=== PATIENT | male | born 1950 | race Caucasian/White ===

== ENCOUNTER 2021-12-20 12:13 | Inpatient (IN) | payer OTHER, MEDICARE ==
[~2021-12-20] VITALS: Ht 175.3 cm; Wt 73.7 kg
[~2021-12-20 12:13] MED LIST: CHOL400T32 PO; HYDR-4383 PO; HYDR25TA4 PO; MYCOL15CR TOP; PANT-47 PO; RIVA20TA PO
[2021-12-20 13:04] LABS: ALANINE AMINOTRANSFERASE 45 U/L (12-78); ALBUMIN 3.3 G/DL (3.4-5.0); ALBUMIN/GLOBULIN RATIO 0.6 (1.1-1.5); ALKALINE PHOSPHATASE 136 IU/L (46-116); ANION GAP 15 (8-16); ASPARTATE AMINO TRANSFERASE 49 U/L (10-37); BILIRUBIN,TOTAL 1.1 MG/DL (0.1-1.0); BLOOD UREA NITROGEN 77 MG/DL (7-18); BUN/CREATININE RATIO 23.1 (5.4-32.0); CALCIUM 9.4 MG/DL (8.5-10.1); CHLORIDE 88 MMOL/L (99-107); CREATININE 3.34 MG/DL (0.60-1.10); GLUCOSE 168 MG/DL (70-104); LIPASE 127 U/L (73-393); POTASSIUM 3.6 MMOL/L (3.5-5.1); SODIUM 135 MMOL/L (135-145); TOTAL CARBON DIOXIDE 32.5 MMOL/L (24-32); TOTAL PROTEIN 8.5 G/DL (6.4-8.2); eGFR 18 ML/MIN
[2021-12-20 13:10] LABS: BASOPHILS % (AUTO) 0.1 % (0-1); EOSINOPHILS % (AUTO) 0.1 % (0-6); HEMOGLOBIN 14.6 g/dl (14.0-17.9); LYMPHOCYTES # (AUTO) 0.7 X10'3 (1.1-4.8); LYMPHOCYTES % (AUTO) 5.4 % (21-51); MEAN CORPUSCULAR HEMOGLOBIN 29.5 PG (27.0-31.0); MEAN CORPUSCULAR HGB CONC 33.8 g/dL (33.0-36.5); MEAN CORPUSCULAR VOLUME 87.2 FL (78-98); MEAN PLATELET VOLUME 8.6 FL (7.4-10.4); MONOCYTES # (AUTO) 0.9 X10'3 (0-0.9); MONOCYTES % (AUTO) 6.4 % (2-12); NEUTROPHILS # (AUTO) 11.9 X10'3 (1.8-7.7); PLATELET COUNT 547 X10'3 (140-440); RED BLOOD COUNT 4.94 X10'6 (4.70-6.10); RED CELL DISTRIBUTION WIDTH 14.8 % (11.5-14.5); WHITE BLOOD COUNT 13.5 X10'3 (4.5-11.0)
[2021-12-20] MEDS ORDERED: proCHLORperazine 10 MG/2 ml inj IV ONE (14:45)
[2021-12-20] MEDS ORDERED: normal saline 1000ML IV soln IVB ONE (14:45)
[2021-12-20] MEDS ORDERED: piperacillin/tazo 3.375gm/50ml 50 ML IV ONE (15:55)
[2021-12-20] MEDS ORDERED: potassium Cl 20 mEq SR tablet PO PRN ×2 (16:15)
[2021-12-20] MEDS ORDERED: magnesium 2GM in 50ml NS 50 ML IV PRN (16:15)
[2021-12-20] MEDS ORDERED: potassium CL 10mEq/100ml bag 100 ML IV PRN (16:15)
[2021-12-20] MEDS ORDERED: magnesium hydroxide 30ml (MOM) UD suspension PO PRN (16:15)
[2021-12-20] MEDS ORDERED: magnesium 4gm in 100ml NS 100 ML IV PRN (16:15)
[2021-12-20] MEDS ORDERED: magnesium Cl slow-release 64mg tablet PO PRN (16:15)
[2021-12-20] MEDS ORDERED: morphine 2 MG/ML inj. syringe IV PRN (16:15)
[2021-12-20] MEDS ORDERED: mag hydrox/Alum hydrox/simeth 30ml oral suspension PO PRN (16:15)
[2021-12-20] MEDS ORDERED: LIDOcaine 2% 10ml TOPICAL JELLY (Urojet) MM ONE (16:15)
[2021-12-20] MEDS ORDERED: acetaminophen 325mg tablet PO PRN ×2 (16:15)
[2021-12-20] MEDS ORDERED: normal saline 1000ml 1,000 ML IV ONE (16:30)
[2021-12-20 16:37] LABS: MAGNESIUM 2.8 MG/DL (1.5-2.4)
[2021-12-20] MEDS ORDERED: POTA-207 PO (16:43)
[2021-12-20] MEDS ORDERED: MAGN420T PO (16:43)
[2021-12-20] MEDS ORDERED: EZET10TA6 PO (16:43)
[2021-12-20] MEDS ORDERED: CYAN-51 PO (16:43)
[2021-12-20] MEDS ORDERED: CETI10TA15 PO (16:43)
[2021-12-20] MEDS ORDERED: TRIA1TAB3 PO (16:43)
[2021-12-20] MEDS ORDERED: CHOL200013 PO (16:43)
[2021-12-20] MEDS ORDERED: AMLO2.5T5 PO (16:43)
[2021-12-20] MEDS ORDERED: CLOP75TA15 PO (16:43)
[2021-12-20] MEDS ORDERED: FERR-39 PO (16:43)
[2021-12-20] MEDS ORDERED: ATOR-2 PO (16:43)
[2021-12-20 16:56] LABS: HEMOGLOBIN A1C 5.9 % (4.5-6.2)
[2021-12-20 17:05] LABS: CLARITY,URINE SLIGHTLY CLOUDY (Clear); COLOR,URINE YELLOW (Yellow); GLUCOSE, URINE NEGATIVE (Neg); KETONES,URINE TRACE mg/dl (Neg); LEUKOCYTE ESTERASE ,URINE NEGATIVE (Neg); NITRITES, URINE NEGATIVE (Neg); OCCULT BLOOD,URINE SMALL (Neg); PROTEIN,URINE 30 mg/dl (Neg); UROBILINOGEN,URINE 0.2 E.U/dL (0.2-1.0)
[2021-12-20 17:06] LABS: UA COLLECTION TYPE FOLEY CATH
[2021-12-20 17:17] LABS: HYALINE CASTS 0-3 /LPF (NEGATIVE)
[2021-12-20 17:19] LABS: MUCUS STRANDS MODERATE /LPF (Neg); SQUAMOUS EPITHELIAL CELL,UR MODERATE /LPF (FEW)
[2021-12-20 17:20] LABS: BACTERIA,URINE FEW /HPF (Neg); WBC,URINE 0-4 /HPF (0-4)
--- NOTE | 2021-12-20 17:20 | NUR ---
Report given to DEJA Yañez on the Ortho unit.
[2021-12-20] MEDS: morphine 2 MG/ML inj. syringe IV PRN (17:58)
[2021-12-20] MEDS: normal saline 1000ml 1,000 ML IV SCH (18:01)
[2021-12-20 18:48] VITALS: BP 119/73
--- NOTE | 2021-12-20 18:48 | NUR ---
Patient in room ORTHO 4009. I have received report from DAKSHA SHORT and had the opportunity to ask questions and assume patient care.
--- NOTE | 2021-12-20 18:49 | NUR ---
Patient arrived to unit at 1735 from ED.
--- NOTE | 2021-12-20 19:28 | NUR ---
Patient in room ORTHO 4009. I have received report from JONG SHORT and had the opportunity to ask questions and assume patient care.
[2021-12-20] MEDS: docusate sod 100mg capsule PO SCH (20:00)
[2021-12-20] MEDS: K and/or MAG REPLACEMENT MC SCH (20:00)
[2021-12-20] MEDS: heparin, porcine 5000 units/ml vial SQ SCH (20:58)
[2021-12-20 22:00] VITALS: BP 118/72
[2021-12-20] MEDS: diatr meglu/diatrizoate 30ml oral sol.-(3 dose) bottle PO SCH (22:14)
[2021-12-21] MEDS: piperacillin/tazo 3.375gm/50ml 50 ML IV SCH ×3 (00:02→16:15)
[2021-12-21] MEDS: normal saline 1000ml 1,000 ML IV SCH ×4 (00:42→20:42)
[2021-12-21 02:00] VITALS: BP 113/71
[2021-12-21 06:00] VITALS: BP 107/73
--- NOTE | 2021-12-21 06:43 | NUR ---
Problems reprioritized. Patient report given, questions answered & plan of care reviewed with LAURA SHORT.
[2021-12-21 06:52] LABS: BASOPHILS % (AUTO) 0.1 % (0-1); EOSINOPHILS % (AUTO) 0.1 % (0-6); HEMATOCRIT 36.5 % (42.0-52.0); HEMOGLOBIN 12.2 g/dl (14.0-17.9); LYMPHOCYTES # (AUTO) 0.6 X10'3 (1.1-4.8); LYMPHOCYTES % (AUTO) 5.1 % (21-51); MEAN CORPUSCULAR HEMOGLOBIN 29.6 PG (27.0-31.0); MEAN CORPUSCULAR HGB CONC 33.4 g/dL (33.0-36.5); MEAN CORPUSCULAR VOLUME 88.7 FL (78-98); MEAN PLATELET VOLUME 7.9 FL (7.4-10.4); MONOCYTES # (AUTO) 0.7 X10'3 (0-0.9); MONOCYTES % (AUTO) 6.3 % (2-12); NEUTROPHILS # (AUTO) 9.6 X10'3 (1.8-7.7); NEUTROPHILS % (AUTO) 88.4 % (42-75); PLATELET COUNT 418 X10'3 (140-440); RED BLOOD COUNT 4.12 X10'6 (4.70-6.10); RED CELL DISTRIBUTION WIDTH 14.6 % (11.5-14.5); WHITE BLOOD COUNT 10.8 X10'3 (4.5-11.0)
--- NOTE | 2021-12-21 07:03 | NUR ---
Problems reprioritized. Patient report given, questions answered & plan of care reviewed with PRAVEENA SHORT.
[2021-12-21] MEDS: K and/or MAG REPLACEMENT MC SCH ×2 (08:00→20:09)
[2021-12-21] MEDS: docusate sod 100mg capsule PO SCH ×2 (08:00→20:00)
[2021-12-21 08:17] LABS: ALANINE AMINOTRANSFERASE 36 U/L (12-78); ALBUMIN 2.5 G/DL (3.4-5.0); ALBUMIN/GLOBULIN RATIO 0.6 (1.1-1.5); ALKALINE PHOSPHATASE 108 IU/L (46-116); ANION GAP 9 (8-16); ASPARTATE AMINO TRANSFERASE 35 U/L (10-37); BILIRUBIN,TOTAL 0.9 MG/DL (0.1-1.0); BLOOD UREA NITROGEN 70 MG/DL (7-18); CHLORIDE 97 MMOL/L (99-107); CHOL/HDL RATIO 2.6 (0.00-4.99); CHOLESTEROL 92 MG/DL (0-200); CREATININE 3.05 MG/DL (0.60-1.10); GLUCOSE 95 MG/DL (70-104); HDL CHOLESTEROL 35 MG/DL (35-60); LDL CHOLESTEROL 43 MG/DL (50-100); PHOSPHORUS 5.5 MG/DL (2.3-4.5); SODIUM 145 MMOL/L (135-145); TOTAL CARBON DIOXIDE 38.9 MMOL/L (24-32); TOTAL PROTEIN 6.8 G/DL (6.4-8.2); TRIGLYCERIDES 101 MG/DL (20-135); eGFR 20 ML/MIN
[2021-12-21 08:22] LABS: POTASSIUM 2.7 MMOL/L (3.5-5.1)
[2021-12-21] MEDS: diatr meglu/diatrizoate 30ml oral sol.-(3 dose) bottle PO SCH ×2 (09:06→10:16)
[2021-12-21] MEDS: heparin, porcine 5000 units/ml vial SQ SCH ×2 (09:07→20:00)
[2021-12-21] MEDS ORDERED: POTASSIUM BICARB 20meq eff tab 20 MEQ TABLET.EFF PO PRN ×2 (14:00)
[2021-12-21 14:08] VITALS: BP 117/65
--- NOTE | 2021-12-21 18:37 | NUR ---
ROUNDED WITH DR. POTTS, PATIENT GOING TO SURGERY. NG EMPTIED, F/C EMPTIED AND COVID TEST TAKEN.
--- NOTE | 2021-12-21 19:10 | NUR ---
Problems reprioritized. Patient report given, questions answered & plan of care reviewed with FAVIAN SHORT.
[2021-12-21 19:37] LABS: ALANINE AMINOTRANSFERASE 33 U/L (12-78); ALBUMIN 2.7 G/DL (3.4-5.0); ALBUMIN/GLOBULIN RATIO 0.6 (1.1-1.5); ALKALINE PHOSPHATASE 112 IU/L (46-116); ASPARTATE AMINO TRANSFERASE 33 U/L (10-37); BLOOD UREA NITROGEN 68 MG/DL (7-18); BUN/CREATININE RATIO 23.4 (5.4-32.0); CALCIUM 8.2 MG/DL (8.5-10.1); CHLORIDE 97 MMOL/L (99-107); GLUCOSE 92 MG/DL (70-104); SODIUM 150 MMOL/L (135-145); TOTAL PROTEIN 7.4 G/DL (6.4-8.2); eGFR 21 ML/MIN
[2021-12-21 19:53] LABS: ANION GAP 7 (8-16)
[2021-12-21 19:55] LABS: POTASSIUM 2.5 MMOL/L (3.5-5.1)
[2021-12-21] MEDS ORDERED: fentaNYL/PF 50MCG/1 ML 2ML syringe ONE ×3 (21:25→23:59)
[2021-12-21] MEDS ORDERED: rocuronium 10mg/ml inj IV ONE (21:26)
[2021-12-21] MEDS ORDERED: propofol inj 20 ML IV ONE (21:26)
[2021-12-21] MEDS ORDERED: LIDOcaine 2% (20mg/ml) 5ml vial ONE (21:26)
[2021-12-21] MEDS ORDERED: potassium Cl 40MEQ/250ML bag 270 ML IV PRN (21:35)
[2021-12-21] MEDS ORDERED: PHENYLephrine 10mg/ml 5ml injection IV ONE (21:35)
[2021-12-21] MEDS ORDERED: sevoflurane 250ml liquid IH ONE (21:35)
[2021-12-21] MEDS ORDERED: labetalol 5mg/ml 20ml inj. IV ONE (21:35)
[2021-12-21] MEDS: potassium Cl 20mEq/100mL bag 100 ML IV SCH ×2 (22:30→23:30)
[2021-12-21] MEDS ORDERED: BUPIVACAINE liposomal/PF 13.3 MG/ML vial IM ONE (23:25)
[2021-12-21] MEDS ORDERED: BUPIVAcaine 0.5% inj/PF 30 ML ONE (23:25)
[2021-12-21] MEDS ORDERED: sugammadex 200mg/2ml injection IV ONE (23:40)
[2021-12-21] MEDS ORDERED: morphine 4 MG/ML inj SYRINge ONE (23:54)
[2021-12-22] VITALS (28 sets, daily range): BP systolic 107–154; BP diastolic 55–94
[2021-12-22] MEDS: HYDROmorphone inj. 0.5 MG/0.5 ML DISP.SYRIN IV PRN ×3 (00:14→00:47)
[2021-12-22] MEDS ORDERED: fentaNYL/PF 50MCG/1 ML 2ML syringe IV ONE (00:20)
[2021-12-22] MEDS ORDERED: ringers solution, lactated 500ml IV solution IV ONE (00:20)
[2021-12-22] MEDS: potassium Cl 20mEq/100mL bag 100 ML IV SCH ×2 (00:30→01:30)
[2021-12-22] MEDS ORDERED: HYDROmorphone 1 mg/ml syringe IV ONE (00:35)
[2021-12-22] MEDS ORDERED: naloxone 0.4 mg/ml inj IV PRN (00:35)
[2021-12-22 00:36] LABS: ABG BASE EXCESS 11.2 mmol/L (-2.0-2.0); ABG HCO3 36.1 mmol/L (22.0-26.0); ABG OXYGEN SATURATION 94.9 % (94-97); ABG PCO2 (T) 48.3 mmHg (35.0-48.0); ABG PO2 (T) 79.5 mmHg (75.0-100.0); FCOHb 0.1 % (0.0-3.9); FLOW 10 L/min; FMetHb 0.3 % (0.0-1.5); FO2Hb 94.5 % (94-97); TOTAL HEMOGLOBIN 12.9 G/dl (14.0-18.0)
[2021-12-22 00:59] LABS: ALANINE AMINOTRANSFERASE 24 U/L (12-78); ALKALINE PHOSPHATASE 83 IU/L (46-116); ANION GAP 11 (8-16); ASPARTATE AMINO TRANSFERASE 22 U/L (10-37); BILIRUBIN,TOTAL 0.9 MG/DL (0.1-1.0); BLOOD UREA NITROGEN 60 MG/DL (7-18); BUN/CREATININE RATIO 23.3 (5.4-32.0); CALCIUM 7.1 MG/DL (8.5-10.1); CHLORIDE 103 MMOL/L (99-107); CREATININE 2.57 MG/DL (0.60-1.10); GLUCOSE 129 MG/DL (70-104); MAGNESIUM 2.5 MG/DL (1.5-2.4); SODIUM 149 MMOL/L (135-145); TOTAL CARBON DIOXIDE 35.5 MMOL/L (24-32); eGFR 25 ML/MIN
[2021-12-22 01:04] LABS: POTASSIUM 2.9 MMOL/L (3.5-5.1)
[2021-12-22 01:16] LABS: APTT 24 SECONDS (22-32)
[2021-12-22 01:38] LABS: HEMOGLOBIN 12.1 g/dl (14.0-17.9); LYMPHOCYTES # (AUTO) 0.1 X10'3 (1.1-4.8); NEUTROPHILS # (AUTO) 2.3 X10'3 (1.8-7.7); WHITE BLOOD COUNT 2.4 X10'3 (4.5-11.0)
[2021-12-22 01:40] LABS: BASOPHILS % (AUTO) 0 % (0-1); EOSINOPHILS % (AUTO) 0.1 % (0-6); HEMATOCRIT 36.4 % (42.0-52.0); LYMPHOCYTES % (AUTO) 4.8 % (21-51); MEAN CORPUSCULAR HEMOGLOBIN 30.3 PG (27.0-31.0); MEAN CORPUSCULAR HGB CONC 33.3 g/dL (33.0-36.5); MEAN CORPUSCULAR VOLUME 91.1 FL (78-98); MEAN PLATELET VOLUME 7.1 FL (7.4-10.4); MONOCYTES % (AUTO) 1.3 % (2-12); NEUTROPHILS % (AUTO) 93.8 % (42-75); PLATELET COUNT 432 X10'3 (140-440); RED BLOOD COUNT 3.99 X10'6 (4.70-6.10); RED CELL DISTRIBUTION WIDTH 14.7 % (11.5-14.5)
[2021-12-22] MEDS ORDERED: magnesium 4gm in 100ml NS 100 ML IV ONE (01:50)
[2021-12-22] MEDS: piperacillin/tazo 3.375gm/50ml 50 ML IV SCH ×3 (01:50→19:09)
[2021-12-22] MEDS: HYDROmorph/NS 0.2 mg/ml PCA 100 ML IV SCH ×11 (02:02→23:57)
[2021-12-22] MEDS: normal saline 1000ml 1,000 ML IV SCH ×4 (02:20→23:22)
[2021-12-22] MEDS ORDERED: potassium Cl 20 mEq/100mL bag IV ONE ×3 (02:30→04:30)
[2021-12-22 02:58] LABS: TOTAL CELLS COUNTED 100
[2021-12-22 03:01] LABS: PLATELET ESTIMATE NORMAL
[2021-12-22 03:04] LABS: LARGE PLATELETS FEW
[2021-12-22 06:06] LABS: ALANINE AMINOTRANSFERASE 21 U/L (12-78); ALBUMIN 2.5 G/DL (3.4-5.0); ALBUMIN/GLOBULIN RATIO 0.9 (1.1-1.5); ALKALINE PHOSPHATASE 74 IU/L (46-116); ANION GAP 9 (8-16); ASPARTATE AMINO TRANSFERASE 25 U/L (10-37); BILIRUBIN,TOTAL 1.1 MG/DL (0.1-1.0); BLOOD UREA NITROGEN 59 MG/DL (7-18); BUN/CREATININE RATIO 21.9 (5.4-32.0); CALCIUM 7.1 MG/DL (8.5-10.1); CHLORIDE 106 MMOL/L (99-107); CREATININE 2.69 MG/DL (0.60-1.10); GLUCOSE 103 MG/DL (70-104); POTASSIUM 3.4 MMOL/L (3.5-5.1); SODIUM 149 MMOL/L (135-145); TOTAL CARBON DIOXIDE 33.7 MMOL/L (24-32); TOTAL PROTEIN 5.3 G/DL (6.4-8.2); eGFR 23 ML/MIN
--- NOTE | 2021-12-22 06:30 | NUR ---
Patient in room ICU 2039. I have received report from Pao SHORT and had the opportunity to ask questions and assume patient care.
[2021-12-22] MEDS: K and/or MAG REPLACEMENT MC SCH ×2 (07:39→20:00)
[2021-12-22] MEDS: docusate sod 100mg capsule PO SCH ×2 (08:00→20:00)
[2021-12-22] MEDS ORDERED: normal saline 1000ml 1,000 ML IV ONE ×2 (08:25→11:00)
[2021-12-22] MEDS: heparin, porcine 5000 units/ml vial SQ SCH ×2 (08:45→20:29)
[2021-12-22 09:43] LABS: MAGNESIUM 3.5 MG/DL (1.5-2.4); PHOSPHORUS 4.5 MG/DL (2.3-4.5)
[2021-12-22] MEDS ORDERED: albumin (Human) 5% 250ml 250 ML IV ONE (10:15)
--- NOTE | 2021-12-22 10:50 | NUR ---
Pt seen by CC MD, anesthesiologist and surgeon. Order received. One was to change the FUR GRADER to a continuous rate of 0.2 mg/hr. Pharmacist called for that dosing. Davida [facility] came up with lock iglesias and reprogramed the new put to a continuous rate as well as the 0.2 mg Q10min for the FUR GRADER as well. Pump remains in locked box. Goal for UO is 40 cc/hr.
[2021-12-22] MEDS ORDERED: pantoprazole 40MG/NS 100ML BAG 100 ML IV SCH (10:57)
--- NOTE | 2021-12-22 11:19 | NUR ---
TPN consult: Pt admitted w/ small bowel obstruction, underwent ex lap w/ small bowel resection and appendectomy 12/21 per EMR. Currently NPO and to start on TPN per Surgeon, see recs below which have been discussed w/ clinical pharmacist. Given pt's labs and renal function, electing for non-E formulation at this time. LBM 12/13 Will continue to monitor. Recs: 1. Continuous TPN per MD using 2:1 Clinimix non-E 01/15 at 85ml/hr goal w/ additional 250ml 20% ILE to run at 20.83ml/hr for 12hr 2x/week. In total to provide 2040ml volume, avg 1938kcals/day, 102g AA, 408g Dextrose (3.47mg/kg/min GIR) 2. PALB/TG Q / 3. Monitor for S/S of refeeding given prolonged NPO 4. Bowel care per MD 5. Advance to Low fiber diet once medically indicated 6. Daily wts Addendum: 12/22/21 at [address] Amended: Links added.
--- NOTE | 2021-12-22 17:37 | NUR ---
Family. Son, employee, came to see father earlier and again at about 1700 with his . Questions answered and plan of care explained. Pt states pain about 4-5. Requesting ice chips for dry mouth. C/O full stomach. NG flushed with air and got about 150 cc of fluid out - greenish bile color. O2 going into
--- NOTE | 2021-12-22 18:30 | NUR ---
Patient in room ICU 2039. I have received report from Maximino SHORT and had the opportunity to ask questions and assume patient care.
--- NOTE | 2021-12-22 18:40 | NUR ---
Problems reprioritized. Patient report given, questions answered & plan of care reviewed with Karl SHORT. Introduced pt and dauthger in law to Karl SHORT. Reviewed CADD with Karl and let pt know it was working well. Pt pain remains 3-4 with CADD.
[2021-12-22 19:53] LABS: BASOPHILS # (AUTO) 0.1 X10'3 (0-0.2); BASOPHILS % (AUTO) 0.2 % (0-1); EOSINOPHILS % (AUTO) 0 % (0-6); HEMATOCRIT 32.3 % (42.0-52.0); HEMOGLOBIN 10.3 g/dl (14.0-17.9); LYMPHOCYTES # (AUTO) 0.3 X10'3 (1.1-4.8); LYMPHOCYTES % (AUTO) 1.1 % (21-51); MEAN CORPUSCULAR HEMOGLOBIN 29.2 PG (27.0-31.0); MEAN CORPUSCULAR VOLUME 91.2 FL (78-98); MEAN PLATELET VOLUME 7.5 FL (7.4-10.4); MONOCYTES # (AUTO) 0.3 X10'3 (0-0.9); MONOCYTES % (AUTO) 1.2 % (2-12); NEUTROPHILS # (AUTO) 25.3 X10'3 (1.8-7.7); NEUTROPHILS % (AUTO) 97.5 % (42-75); PLATELET COUNT 305 X10'3 (140-440); RED BLOOD COUNT 3.54 X10'6 (4.70-6.10)
[2021-12-22 20:27] LABS: ALANINE AMINOTRANSFERASE 14 U/L (12-78); ALBUMIN 2.4 G/DL (3.4-5.0); ALBUMIN/GLOBULIN RATIO 0.7 (1.1-1.5); ALKALINE PHOSPHATASE 55 IU/L (46-116); ANION GAP 11 (8-16); ASPARTATE AMINO TRANSFERASE 21 U/L (10-37); BILIRUBIN,TOTAL 0.9 MG/DL (0.1-1.0); BLOOD UREA NITROGEN 55 MG/DL (7-18); BUN/CREATININE RATIO 22.4 (5.4-32.0); CALCIUM 7.2 MG/DL (8.5-10.1); CHLORIDE 111 MMOL/L (99-107); CREATININE 2.46 MG/DL (0.60-1.10); GLUCOSE 92 MG/DL (70-104); MAGNESIUM 3.2 MG/DL (1.5-2.4); PHOSPHORUS 4.4 MG/DL (2.3-4.5); POTASSIUM 3.3 MMOL/L (3.5-5.1); SODIUM 153 MMOL/L (135-145); TOTAL CARBON DIOXIDE 30.8 MMOL/L (24-32); TOTAL PROTEIN 5.9 G/DL (6.4-8.2); eGFR 26 ML/MIN
[2021-12-22] MEDS: MVI, adult No.4 with vit. K 10 ML in dextrose 5% water 500ml 500 ML IV SCH ×2 (20:29)
[2021-12-22] MEDS: ZINC/COPPER/MANGANESE/SELENIUM 1 ML, chromic chloride inj. 10 MCG in AMINO ACIDS 5 %/DE... IV SCH (20:30)
[2021-12-22] MEDS: fat emulsion IV bag 250 ML IV SCH (20:30)
[2021-12-22] MEDS ORDERED: Dextrose 10%-water IV solution 1,000 ML IV PRN (21:00)
[2021-12-22 21:27] LABS: PLATELET ESTIMATE NORMAL; TOTAL CELLS COUNTED 100
[2021-12-22] MEDS: pantoprazole 40MG/NS 100ML BAG 100 ML IV SCH (22:59)
[2021-12-23] VITALS (17 sets, daily range): BP systolic 109–136; BP diastolic 59–78
[2021-12-23] MEDS: piperacillin/tazo 3.375gm/50ml 50 ML IV SCH ×3 (00:06→16:56)
[2021-12-23] MEDS: HYDROmorph/NS 0.2 mg/ml PCA 100 ML IV SCH ×6 (01:48→23:00)
[2021-12-23 03:10] LABS: BASOPHILS % (AUTO) 0 % (0-1); EOSINOPHILS % (AUTO) 0.1 % (0-6); HEMATOCRIT 30.8 % (42.0-52.0); HEMOGLOBIN 9.9 g/dl (14.0-17.9); LYMPHOCYTES # (AUTO) 0.3 X10'3 (1.1-4.8); LYMPHOCYTES % (AUTO) 1.3 % (21-51); MEAN CORPUSCULAR VOLUME 90.6 FL (78-98); MEAN PLATELET VOLUME 7.8 FL (7.4-10.4); MONOCYTES # (AUTO) 0.3 X10'3 (0-0.9); MONOCYTES % (AUTO) 1.3 % (2-12); NEUTROPHILS # (AUTO) 24.1 X10'3 (1.8-7.7); NEUTROPHILS % (AUTO) 97.3 % (42-75); PLATELET COUNT 284 X10'3 (140-440); RED CELL DISTRIBUTION WIDTH 15.2 % (11.5-14.5); WHITE BLOOD COUNT 24.8 X10'3 (4.5-11.0)
[2021-12-23 03:13] LABS: ALANINE AMINOTRANSFERASE 15 U/L (12-78); ALBUMIN 2.2 G/DL (3.4-5.0); ALBUMIN/GLOBULIN RATIO 0.7 (1.1-1.5); ALKALINE PHOSPHATASE 58 IU/L (46-116); ANION GAP 9 (8-16); ASPARTATE AMINO TRANSFERASE 21 U/L (10-37); BILIRUBIN,TOTAL 0.7 MG/DL (0.1-1.0); BLOOD UREA NITROGEN 51 MG/DL (7-18); BUN/CREATININE RATIO 21.7 (5.4-32.0); CALCIUM 7.1 MG/DL (8.5-10.1); CHLORIDE 110 MMOL/L (99-107); CREATININE 2.35 MG/DL (0.60-1.10); GLUCOSE 174 MG/DL (70-104); MAGNESIUM 3.4 MG/DL (1.5-2.4); PHOSPHORUS 3.2 MG/DL (2.3-4.5); PREALBUMIN 8.6 MG/DL (19-36); SODIUM 151 MMOL/L (135-145); TOTAL CARBON DIOXIDE 32.4 MMOL/L (24-32); TOTAL PROTEIN 5.3 G/DL (6.4-8.2); eGFR 27 ML/MIN
[2021-12-23] MEDS: potassium Cl 20mEq/100mL bag 100 ML IV PRN ×4 (03:43→08:33)
--- NOTE | 2021-12-23 06:30 | NUR ---
Patient in room ICU 2039. I have received report from Jim and had the opportunity to ask questions and assume patient care.
[2021-12-23] MEDS: nicotine 21mg patch - 24 hr TD SCH (07:21)
[2021-12-23] MEDS: normal saline 1000ml 1,000 ML IV SCH (07:21)
[2021-12-23] MEDS: heparin, porcine 5000 units/ml vial SQ SCH ×2 (07:21→21:39)
[2021-12-23] MEDS: docusate sod 100mg capsule PO SCH ×2 (07:22→20:00)
[2021-12-23] MEDS: K and/or MAG REPLACEMENT MC SCH ×2 (07:22→19:52)
[2021-12-23] MEDS ORDERED: WATER IV ONE (09:05)
[2021-12-23] MEDS ORDERED: DEXTROSE 5% IV ONE (09:05)
--- NOTE | 2021-12-23 10:05 | NUR ---
Page Accepted promotional table spacer Message: [address] Monteiro does not want to add more fluids b/c TPN at 85. [place] ICU
[2021-12-23] MEDS ORDERED: DEXTROSE 15 GM of carb/4 tabs (each vial/BOTTLE has 4 tablets) PO PRN ×2 (10:20)
[2021-12-23] MEDS ORDERED: MESSAGE TO PHARMACY PO ONE (10:20)
[2021-12-23] MEDS ORDERED: glucagon, human recombinant 1mg kit SUBCUT PRN (10:20)
[2021-12-23] MEDS ORDERED: insulin Lispro (HumaLOG) vial - multi-dose SQ SCH (10:20)
[2021-12-23] MEDS ORDERED: dextrose 50%-water 50ml dispensing syringe IV PRN ×2 (10:20)
[2021-12-23 11:50] LABS: HEMOGLOBIN A1C 6.1 % (4.5-6.2)
--- NOTE | 2021-12-23 13:33 | NUR ---
Dr. Andujar at bedside. NG clamped. Says to re-check residues in fours hours.
--- NOTE | 2021-12-23 14:20 | NUR ---
Abdominal dressing changed. Scant serous sanguinous fluid around the middle. Inola intact and well approximated. Patient very sensitive to touch.
[2021-12-23] MEDS: insulin regular, human U-100 3ml vial - multi-dose SQ SCH (15:37)
--- NOTE | 2021-12-23 17:00 | NUR ---
Problems reprioritized. Patient report given, questions answered & plan of care reviewed with Joana.
--- NOTE | 2021-12-23 17:00 | NUR ---
Patient in room PCU 3027. I have received report from Jose Guadalupe SHORT and had the opportunity to ask questions and assume patient care.
--- NOTE | 2021-12-23 18:49 | NUR ---
Problems reprioritized. Patient report given, questions answered & plan of care reviewed with Clark RN, pt stable atr transfer of care.
[2021-12-23] MEDS: insulin glargine (Lantus) pen - multi-dose SQ SCH (21:00)
[2021-12-24] MEDS: piperacillin/tazo 3.375gm/50ml 50 ML IV SCH ×4 (00:31→23:27)
[2021-12-24] MEDS: pantoprazole 40MG/NS 100ML BAG 100 ML IV SCH ×2 (00:31→23:27)
[2021-12-24] MEDS: HYDROmorph/NS 0.2 mg/ml PCA 100 ML IV SCH ×12 (01:00→23:00)
[2021-12-24 02:00] VITALS: BP 133/73
[2021-12-24] MEDS: ZINC/COPPER/MANGANESE/SELENIUM 1 ML, chromic chloride inj. 10 MCG in AMINO ACIDS 5 %/DE... IV SCH (04:25)
[2021-12-24] MEDS: PCA WASTE DOCUMENTATION MC PRN (05:02)
[2021-12-24 06:00] VITALS: BP 133/77
--- NOTE | 2021-12-24 06:33 | NUR ---
Patient in room PCU 3027. I have received report from Clark SHORT and had the opportunity to ask questions and assume patient care.
[2021-12-24 06:34] LABS: ALANINE AMINOTRANSFERASE 20 U/L (12-78); ALBUMIN/GLOBULIN RATIO 0.5 (1.1-1.5); ALKALINE PHOSPHATASE 88 IU/L (46-116); ANION GAP 6 (8-16); ASPARTATE AMINO TRANSFERASE 21 U/L (10-37); BILIRUBIN,TOTAL 0.6 MG/DL (0.1-1.0); BLOOD UREA NITROGEN 42 MG/DL (7-18); BUN/CREATININE RATIO 22.7 (5.4-32.0); CALCIUM 8.1 MG/DL (8.5-10.1); CHLORIDE 114 MMOL/L (99-107); CREATININE 1.85 MG/DL (0.60-1.10); GLUCOSE 125 MG/DL (70-104); MAGNESIUM 2.8 MG/DL (1.5-2.4); PHOSPHORUS 1.4 MG/DL (2.3-4.5); POTASSIUM 3.4 MMOL/L (3.5-5.1); PREALBUMIN 7.9 MG/DL (19-36); SODIUM 153 MMOL/L (135-145); TOTAL CARBON DIOXIDE 32.8 MMOL/L (24-32); TOTAL PROTEIN 6.1 G/DL (6.4-8.2); eGFR 36 ML/MIN
[2021-12-24 06:37] LABS: BASOPHILS % (AUTO) 0 % (0-1); EOSINOPHILS # (AUTO) 0.2 X10'3 (0-0.9); HEMATOCRIT 32.8 % (42.0-52.0); HEMOGLOBIN 10.6 g/dl (14.0-17.9); LYMPHOCYTES # (AUTO) 0.5 X10'3 (1.1-4.8); MEAN CORPUSCULAR HEMOGLOBIN 29.8 PG (27.0-31.0); MEAN CORPUSCULAR HGB CONC 32.4 g/dL (33.0-36.5); MONOCYTES # (AUTO) 0.3 X10'3 (0-0.9); MONOCYTES % (AUTO) 1.5 % (2-12); NEUTROPHILS # (AUTO) 16.3 X10'3 (1.8-7.7); NEUTROPHILS % (AUTO) 94.5 % (42-75); PLATELET COUNT 284 X10'3 (140-440); RED BLOOD COUNT 3.57 X10'6 (4.70-6.10); RED CELL DISTRIBUTION WIDTH 15.3 % (11.5-14.5); WHITE BLOOD COUNT 17.3 X10'3 (4.5-11.0)
[2021-12-24] MEDS: docusate sod 100mg capsule PO SCH ×2 (08:00→20:00)
[2021-12-24] MEDS: K and/or MAG REPLACEMENT MC SCH ×2 (08:00→20:00)
[2021-12-24] MEDS: heparin, porcine 5000 units/ml vial SQ SCH ×2 (08:14→20:05)
--- NOTE | 2021-12-24 09:18 | NUR ---
Reassessment: Pt remains NPO and receiving TPN for nutritional needs. Noted slight shift in electrolytes, receiving replacement PRN. Serum Na is elevated at this time though NS just discontinued yesterday. Will continue to monitor tolerance to TPN and need to change to electrolyte containing formula. Pt with NGT in place which is now clamped per EMR, documented with only 30 mL output 12/23. Pt started on glycemic protocol 12/23 d/t elevated BG levels. Still no documented BM post-op. Routine bowel care available though being held d/t NPO status per EMR. Pt to continue with TPN until bowel function returns per MD note. Will continue to follow closely. Recommendations: 1. Continuous TPN per MD using 2:1 Clinimix non-E 01/15 at 85 ml/hr goal w/ additional 250 ml 20% ILE to run at 20.83 ml/hr for 12 hrs on Tuesdays and Fridays. In total to provide 2040 ml total volume/day, avg 1938 kcal, 102 g AA, and 408 g dextrose (3.68 mg/kg/min GIR) 2. Monitor need to change to electrolyte containing formula 3. PALB and TG q Tuesday/ 4. Bowel care per MD 5. Advance to low fiber diet as medically indicated 6. Daily scaled wts Addendum: 12/24/21 at [address] Amended: Links added.
[2021-12-24] MEDS: dextrose 5%-water 1,000 ML IV SCH (10:48)
[2021-12-24] MEDS: ondansetron/PF 4mg/2ml inj IV PRN (12:20)
--- NOTE | 2021-12-24 12:22 | NUR ---
F/u: Received TC from clinical pharmacist stating TPN was never advanced to goal rate so it has been running at 30 mL/hr, though was advanced to goal roughly 30 minutes ago. Clinical pharmacist contacting MD regarding electrolyte replacement. Noted pt started on D5 at 50 mL/hr, recommend discontinuing as TPN now at goal rate and pt not receiving electrolytes via TPN. Serum Na likely elevated r/t receiving NS which was just discontinued yesterday. Will continue to follow closely. Addendum: 12/24/21 at [address] Amended: Links added.
[2021-12-24] MEDS: nicotine 21mg patch - 24 hr TD SCH (12:27)
[2021-12-24] MEDS ORDERED: DEXTROSE 5% IV ONE (13:00)
[2021-12-24] MEDS ORDERED: WATER IV ONE (13:00)
[2021-12-24] MEDS ORDERED: POTASSIUM PHOSPHATE IV ONE (13:00)
[2021-12-24] MEDS ORDERED: ZINC/COPPER/MANGANESE/SELENIUM 1 ML, chromic chloride inj. 10 MCG in AMINO ACIDS 5 %/DE... IV SCH (14:00)
[2021-12-24 15:00] VITALS: BP 142/82
[2021-12-24 18:00] VITALS: BP 127/85
--- NOTE | 2021-12-24 18:17 | NUR ---
Problems reprioritized. Patient report given, questions answered & plan of care reviewed with DEJA Hernandez.
[2021-12-24] MEDS: insulin glargine (Lantus) pen - multi-dose SQ SCH (20:24)
[2021-12-24 22:00] VITALS: BP 132/80
[2021-12-25] MEDS: HYDROmorph/NS 0.2 mg/ml PCA 100 ML IV SCH ×7 (01:00→11:00)
[2021-12-25 02:00] VITALS: BP 146/76
[2021-12-25] MEDS: dextrose 5%-water 1,000 ML IV SCH (02:02)
[2021-12-25] MEDS ORDERED: naloxone 0.4 mg/ml inj IV PRN (04:05)
[2021-12-25] MEDS ORDERED: PCA WASTE DOCUMENTATION MC PRN (04:05)
[2021-12-25 06:00] VITALS: BP 133/72
[2021-12-25 06:12] LABS: BASOPHILS % (AUTO) 0.1 % (0-1); EOSINOPHILS # (AUTO) 0.2 X10'3 (0-0.9); EOSINOPHILS % (AUTO) 2.5 % (0-6); HEMATOCRIT 30.6 % (42.0-52.0); HEMOGLOBIN 9.9 g/dl (14.0-17.9); LYMPHOCYTES # (AUTO) 0.4 X10'3 (1.1-4.8); LYMPHOCYTES % (AUTO) 4.4 % (21-51); MEAN CORPUSCULAR HEMOGLOBIN 29.3 PG (27.0-31.0); MEAN CORPUSCULAR HGB CONC 32.2 g/dL (33.0-36.5); MEAN CORPUSCULAR VOLUME 90.8 FL (78-98); MEAN PLATELET VOLUME 7.9 FL (7.4-10.4); MONOCYTES # (AUTO) 0.3 X10'3 (0-0.9); MONOCYTES % (AUTO) 3.3 % (2-12); NEUTROPHILS # (AUTO) 8.1 X10'3 (1.8-7.7); NEUTROPHILS % (AUTO) 89.7 % (42-75); PLATELET COUNT 250 X10'3 (140-440); RED BLOOD COUNT 3.37 X10'6 (4.70-6.10); RED CELL DISTRIBUTION WIDTH 15.3 % (11.5-14.5); WHITE BLOOD COUNT 9.1 X10'3 (4.5-11.0)
[2021-12-25 06:35] LABS: ALANINE AMINOTRANSFERASE 18 U/L (12-78); ALBUMIN 1.7 G/DL (3.4-5.0); ALBUMIN/GLOBULIN RATIO 0.4 (1.1-1.5); ALKALINE PHOSPHATASE 72 IU/L (46-116); ANION GAP 6 (8-16); ASPARTATE AMINO TRANSFERASE 18 U/L (10-37); BILIRUBIN,TOTAL 0.6 MG/DL (0.1-1.0); BLOOD UREA NITROGEN 34 MG/DL (7-18); BUN/CREATININE RATIO 23.9 (5.4-32.0); CALCIUM 7.3 MG/DL (8.5-10.1); CHLORIDE 112 MMOL/L (99-107); CREATININE 1.42 MG/DL (0.60-1.10); GLUCOSE 169 MG/DL (70-104); MAGNESIUM 2.2 MG/DL (1.5-2.4); PHOSPHORUS 1.9 MG/DL (2.3-4.5); SODIUM 146 MMOL/L (135-145); TOTAL CARBON DIOXIDE 27.7 MMOL/L (24-32); TOTAL PROTEIN 5.8 G/DL (6.4-8.2); eGFR 49 ML/MIN
[2021-12-25 06:43] LABS: POTASSIUM 2.7 MMOL/L (3.5-5.1)
[2021-12-25] MEDS: piperacillin/tazo 3.375gm/50ml 50 ML IV SCH ×3 (07:30→23:19)
[2021-12-25] MEDS: docusate sod 100mg capsule PO SCH ×2 (08:00→19:41)
[2021-12-25] MEDS: MVI, adult No.4 with vit. K 10 ML in dextrose 5% water 500ml 500 ML IV SCH ×4 (09:12→10:45)
[2021-12-25] MEDS ORDERED: potassium CL 10mEq/100ml bag 100 ML IV PRN (09:20)
[2021-12-25] MEDS ORDERED: magnesium 4gm in 100ml NS 100 ML IV PRN (09:20)
[2021-12-25] MEDS ORDERED: magnesium 2GM in 50ml NS 50 ML IV PRN (09:20)
[2021-12-25] MEDS: heparin, porcine 5000 units/ml vial SQ SCH ×2 (09:56→19:51)
[2021-12-25] MEDS: K and/or MAG REPLACEMENT MC SCH ×2 (10:00→19:41)
[2021-12-25] MEDS: nicotine 21mg patch - 24 hr TD SCH (10:13)
[2021-12-25] MEDS: fat emulsion IV bag 250 ML IV SCH (10:48)
[2021-12-25] MEDS: potassium Cl 40MEQ/1/2NS 520ml 520 ML IV PRN ×2 (10:50→16:19)
[2021-12-25 11:00] VITALS: BP 141/71
--- NOTE | 2021-12-25 12:09 | NUR ---
Page Accepted Message: Rolo Domingo [id number]. Infection control came by and would like IJ taken out and replaced with a PICC. Can we get an order to get that done? [facility] [id number] Custom Responses:
[2021-12-25] MEDS: PCA WASTE DOCUMENTATION MC PRN (12:44)
--- NOTE | 2021-12-25 13:01 | NUR ---
5% Dextrose and P C A D/C per MD's order.
--- NOTE | 2021-12-25 13:28 | NUR ---
F/u: D5 has been discontinued today. Given low K and Phos with mag WNL and decreasing serum Na, recommend changing TPN to an electrolyte containing formula. Updated recommendations below have been d/w clinical pharmacist and will meet 94% estimated energy needs and 101% estimated protein needs. Unable to fully meet estimated energy needs without providing excess protein d/t current available TPN formula that contains electrolytes. Will continue to follow closely and make recommendations as appropriate. Recommendations: 1. Continuous TPN per MD using 2:1 Clinimix-E /15 at 95 ml/hr goal with additional 250 ml 20% ILE to run at 20.83 ml/hr for 12 hrs on Tuesdays and Fridays. In total to provide 2280 ml total volume/day, avg 92259 kcal, 114 g AA, and 342 g dextrose (3.06 mg/kg/min GIR) 2. Monitor electrolytes and adjust recommendations as appropriate 3. PALB and TG q Tuesday/ 4. Bowel care per MD 5. Advance to low fiber diet as medically indicated 6. Daily scaled wts Addendum: 12/25/21 at [address] Amended: Links added. Addendum: 12/28/21 at [address] Recommendations: 1. Continuous TPN per MD using 2:1 Clinimix-E 01/10 at 95 ml/hr goal with additional 250 ml 20% ILE to run at 20.83 ml/hr for 12 hrs on Tuesdays and Fridays. In total to provide 2280 ml total volume/day, avg 03234 kcal, 114 g AA, and 342 g dextrose (3.06 mg/kg/min GIR) Addendum: 12/29/21 at [address] CORRECTION: TPN will provide average 1762 kcal
[2021-12-25] MEDS: ZINC/COPPER/MANGANESE/SELENIUM 0.5 ML, chromic chloride inj. 5 MCG in AA 5%/D15W/ELECTR... IV SCH ×2 (15:08→23:36)
[2021-12-25] MEDS: POTASSIUM PHOSPHATE IV ONE ×2 (16:48→17:29)
[2021-12-25] MEDS: DEXTROSE 5% IV ONE ×2 (16:48→17:29)
[2021-12-25] MEDS: WATER IV ONE ×2 (16:48→17:29)
[2021-12-25 18:00] VITALS: BP 179/88
[2021-12-25] MEDS: insulin glargine (Lantus) pen - multi-dose SQ SCH (19:41)
[2021-12-25 22:00] VITALS: BP 163/86
[2021-12-25] MEDS: pantoprazole 40MG/NS 100ML BAG 100 ML IV SCH (23:19)
[2021-12-26 02:00] VITALS: BP 155/74
--- NOTE | 2021-12-26 04:37 | NUR ---
Right IJ removed per Kaya H RN, this RN observed. Patient tolerated well, tip intact, pressure held x5 min.
--- NOTE | 2021-12-26 06:49 | NUR ---
Patient in room PCU 3027. I have received report from Mary SHORT and had the opportunity to ask questions and assume patient care.
[2021-12-26 07:00] VITALS: BP 163/82
[2021-12-26] MEDS: docusate sod 100mg capsule PO SCH ×2 (08:00→20:00)
[2021-12-26] MEDS: K and/or MAG REPLACEMENT MC SCH ×2 (08:00→20:00)
[2021-12-26] MEDS: piperacillin/tazo 3.375gm/50ml 50 ML IV SCH ×3 (08:10→23:10)
[2021-12-26] MEDS: heparin, porcine 5000 units/ml vial SQ SCH ×2 (08:11→20:43)
[2021-12-26] MEDS: nicotine 21mg patch - 24 hr TD SCH (08:12)
[2021-12-26] MEDS: ZINC/COPPER/MANGANESE/SELENIUM 0.5 ML, chromic chloride inj. 5 MCG in AA 5%/D15W/ELECTR... IV SCH ×2 (10:36→20:47)
[2021-12-26 11:00] VITALS: BP 164/78
[2021-12-26] MEDS: HYDROmorphone inj. 0.5 MG/0.5 ML DISP.SYRIN IV PRN ×2 (12:04→17:59)
[2021-12-26] MEDS: ondansetron/PF 4mg/2ml inj IV PRN (12:11)
--- NOTE | 2021-12-26 12:35 | NUR ---
patient medicated x1 for pain and nausea during PT. Able to ambulate 40-50 feet per Physical Therapist ,see note . Dressing changed to abdomen mild amount of yellowish drainage observed on surgical incision . cleaned and new dressing applied . JACLYN site also cleaned and new dressing applied.
[2021-12-26 13:47] LABS: BASOPHILS % (AUTO) 0.2 % (0-1); EOSINOPHILS # (AUTO) 0.2 X10'3 (0-0.9); EOSINOPHILS % (AUTO) 2.5 % (0-6); HEMATOCRIT 32.3 % (42.0-52.0); HEMOGLOBIN 10.5 g/dl (14.0-17.9); LYMPHOCYTES # (AUTO) 0.7 X10'3 (1.1-4.8); LYMPHOCYTES % (AUTO) 7.9 % (21-51); MEAN CORPUSCULAR HEMOGLOBIN 29.3 PG (27.0-31.0); MEAN CORPUSCULAR HGB CONC 32.6 g/dL (33.0-36.5); MEAN CORPUSCULAR VOLUME 89.7 FL (78-98); MEAN PLATELET VOLUME 8.4 FL (7.4-10.4); MONOCYTES # (AUTO) 0.4 X10'3 (0-0.9); MONOCYTES % (AUTO) 4.9 % (2-12); NEUTROPHILS # (AUTO) 7.2 X10'3 (1.8-7.7); NEUTROPHILS % (AUTO) 84.5 % (42-75); PLATELET COUNT 249 X10'3 (140-440); RED CELL DISTRIBUTION WIDTH 15.2 % (11.5-14.5); WHITE BLOOD COUNT 8.5 X10'3 (4.5-11.0)
[2021-12-26 13:49] LABS: ALANINE AMINOTRANSFERASE 23 U/L (12-78); ALBUMIN 1.7 G/DL (3.4-5.0); ALBUMIN/GLOBULIN RATIO 0.4 (1.1-1.5); ALKALINE PHOSPHATASE 100 IU/L (46-116); ANION GAP 8 (8-16); ASPARTATE AMINO TRANSFERASE 24 U/L (10-37); BILIRUBIN,TOTAL 0.9 MG/DL (0.1-1.0); BLOOD UREA NITROGEN 30 MG/DL (7-18); BUN/CREATININE RATIO 26.8 (5.4-32.0); CALCIUM 7.4 MG/DL (8.5-10.1); CHLORIDE 108 MMOL/L (99-107); CREATININE 1.12 MG/DL (0.60-1.10); GLUCOSE 100 MG/DL (70-104); MAGNESIUM 1.6 MG/DL (1.5-2.4); PHOSPHORUS 3.1 MG/DL (2.3-4.5); POTASSIUM 3.4 MMOL/L (3.5-5.1); SODIUM 141 MMOL/L (135-145); TOTAL CARBON DIOXIDE 25.2 MMOL/L (24-32); TOTAL PROTEIN 6.4 G/DL (6.4-8.2); eGFR 64 ML/MIN
[2021-12-26] MEDS: potassium Cl 40MEQ/1/2NS 520ml 520 ML IV PRN (14:54)
[2021-12-26 15:00] VITALS: BP 101/75
[2021-12-26 18:00] VITALS: BP 151/73
--- NOTE | 2021-12-26 18:12 | NUR ---
Problems reprioritized. Patient report given, questions answered & plan of care reviewed with DEJA Hernandez[].
[2021-12-26] MEDS: mineral oil/petrolatum, white cream 113gm jar TP SCH (20:43)
[2021-12-26] MEDS: insulin glargine (Lantus) pen - multi-dose SQ SCH (20:47)
[2021-12-26 23:00] VITALS: BP 132/91
[2021-12-26] MEDS: pantoprazole 40MG/NS 100ML BAG 100 ML IV SCH (23:10)
[2021-12-27 02:00] VITALS: BP 152/75
[2021-12-27] MEDS: HYDROmorphone inj. 0.5 MG/0.5 ML DISP.SYRIN IV PRN ×2 (05:08→15:28)
[2021-12-27 06:15] VITALS: BP 147/84
[2021-12-27] MEDS: heparin, porcine 5000 units/ml vial SQ SCH (07:43)
[2021-12-27] MEDS: piperacillin/tazo 3.375gm/50ml 50 ML IV SCH ×2 (07:43→16:44)
[2021-12-27] MEDS: ZINC/COPPER/MANGANESE/SELENIUM 0.5 ML, chromic chloride inj. 5 MCG in AA 5%/D15W/ELECTR... IV SCH ×2 (07:44→20:50)
[2021-12-27] MEDS: nicotine 21mg patch - 24 hr TD SCH ×2 (07:44→08:12)
[2021-12-27] MEDS: docusate sod 100mg capsule PO SCH ×2 (07:45→20:52)
[2021-12-27] MEDS: K and/or MAG REPLACEMENT MC SCH ×2 (08:00→20:00)
[2021-12-27] MEDS: mineral oil/petrolatum, white cream 113gm jar TP SCH ×2 (08:05→20:53)
--- NOTE | 2021-12-27 08:23 | NUR ---
0820 Assessing patient/ Temp of 100.4, dressing to abdomen saturated, dressing removed, incision site cleansed with NS, applied gauze and ABD pad, secured with paper tape. Hung new bag of TPN, NGT in place at intermittent suction.
[2021-12-27 11:00] VITALS: BP 154/71
[2021-12-27] MEDS ORDERED: potassium Cl 20mEq/100mL bag 100 ML IV PRN (11:50)
[2021-12-27] MEDS ORDERED: CLOP75TA15 PO (12:27)
[2021-12-27 13:19] LABS: BASOPHILS % (AUTO) 0.5 % (0-1); EOSINOPHILS # (AUTO) 0.2 X10'3 (0-0.9); EOSINOPHILS % (AUTO) 2.1 % (0-6); HEMATOCRIT 29.8 % (42.0-52.0); HEMOGLOBIN 9.8 g/dl (14.0-17.9); LYMPHOCYTES # (AUTO) 0.5 X10'3 (1.1-4.8); LYMPHOCYTES % (AUTO) 7.2 % (21-51); MEAN CORPUSCULAR HEMOGLOBIN 29.6 PG (27.0-31.0); MEAN CORPUSCULAR VOLUME 89.7 FL (78-98); MEAN PLATELET VOLUME 8.4 FL (7.4-10.4); MONOCYTES # (AUTO) 0.5 X10'3 (0-0.9); MONOCYTES % (AUTO) 7.2 % (2-12); NEUTROPHILS # (AUTO) 6.2 X10'3 (1.8-7.7); PLATELET COUNT 206 X10'3 (140-440); RED BLOOD COUNT 3.32 X10'6 (4.70-6.10); RED CELL DISTRIBUTION WIDTH 14.5 % (11.5-14.5); WHITE BLOOD COUNT 7.5 X10'3 (4.5-11.0)
[2021-12-27 13:29] LABS: ALANINE AMINOTRANSFERASE 35 U/L (12-78); ALBUMIN 1.4 G/DL (3.4-5.0); ALBUMIN/GLOBULIN RATIO 0.3 (1.1-1.5); ALKALINE PHOSPHATASE 114 IU/L (46-116); ANION GAP 7 (8-16); ASPARTATE AMINO TRANSFERASE 40 U/L (10-37); BILIRUBIN,TOTAL 0.9 MG/DL (0.1-1.0); BLOOD UREA NITROGEN 30 MG/DL (7-18); BUN/CREATININE RATIO 27.5 (5.4-32.0); CALCIUM 7.5 MG/DL (8.5-10.1); CHLORIDE 109 MMOL/L (99-107); CREATININE 1.09 MG/DL (0.60-1.10); GLUCOSE 119 MG/DL (70-104); MAGNESIUM 1.7 MG/DL (1.5-2.4); PHOSPHORUS 3.1 MG/DL (2.3-4.5); POTASSIUM 3.4 MMOL/L (3.5-5.1); SODIUM 138 MMOL/L (135-145); TOTAL CARBON DIOXIDE 22.2 MMOL/L (24-32); TOTAL PROTEIN 5.9 G/DL (6.4-8.2); eGFR 66 ML/MIN
[2021-12-27 15:14] VITALS: BP 132/80
[2021-12-27] MEDS: rivaroxaban 20mg tablet PO SCH (17:51)
[2021-12-27 18:00] VITALS: BP 135/77
[2021-12-27] MEDS: HYDROcodone/acetaminophen 5mg/325mg tablet PO PRN (20:55)
[2021-12-27] MEDS: insulin glargine (Lantus) pen - multi-dose SQ SCH (20:56)
[2021-12-27 22:00] VITALS: BP 140/78
--- NOTE | 2021-12-27 22:07 | NUR ---
Report given to Cherry SHORT. She assumed care for the pt at this time.
[2021-12-28] MEDS: pantoprazole 40MG/NS 100ML BAG 100 ML IV SCH ×2 (01:16→22:33)
[2021-12-28] MEDS: piperacillin/tazo 3.375gm/50ml 50 ML IV SCH ×3 (01:50→15:34)
[2021-12-28 02:00] VITALS: BP 146/78
[2021-12-28] MEDS: HYDROcodone/acetaminophen 5mg/325mg tablet PO PRN (03:10)
--- NOTE | 2021-12-28 06:23 | NUR ---
Problems reprioritized. Patient report given, questions answered & plan of care reviewed with DEJA Gross.
[2021-12-28 06:30] VITALS: BP 159/88
[2021-12-28 06:57] LABS: BASOPHILS % (AUTO) 0.5 % (0-1); EOSINOPHILS # (AUTO) 0.2 X10'3 (0-0.9); EOSINOPHILS % (AUTO) 3.1 % (0-6); HEMATOCRIT 26.7 % (42.0-52.0); HEMOGLOBIN 8.9 g/dl (14.0-17.9); LYMPHOCYTES # (AUTO) 0.6 X10'3 (1.1-4.8); LYMPHOCYTES % (AUTO) 9.3 % (21-51); MEAN CORPUSCULAR HGB CONC 33.6 g/dL (33.0-36.5); MEAN CORPUSCULAR VOLUME 89.3 FL (78-98); MEAN PLATELET VOLUME 8.7 FL (7.4-10.4); MONOCYTES # (AUTO) 0.5 X10'3 (0-0.9); MONOCYTES % (AUTO) 8.1 % (2-12); NEUTROPHILS # (AUTO) 5.3 X10'3 (1.8-7.7); PLATELET COUNT 193 X10'3 (140-440); RED BLOOD COUNT 2.99 X10'6 (4.70-6.10); RED CELL DISTRIBUTION WIDTH 14.6 % (11.5-14.5); WHITE BLOOD COUNT 6.7 X10'3 (4.5-11.0)
[2021-12-28 07:03] LABS: ANION GAP 8 (8-16); BLOOD UREA NITROGEN 31 MG/DL (7-18); BUN/CREATININE RATIO 29.2 (5.4-32.0); CALCIUM 7.1 MG/DL (8.5-10.1); CHLORIDE 107 MMOL/L (99-107); CREATININE 1.06 MG/DL (0.60-1.10); GLUCOSE 145 MG/DL (70-104); POTASSIUM 3.8 MMOL/L (3.5-5.1); SODIUM 138 MMOL/L (135-145); TOTAL CARBON DIOXIDE 23.1 MMOL/L (24-32); eGFR 69 ML/MIN
[2021-12-28 07:04] LABS: ALANINE AMINOTRANSFERASE 62 U/L (12-78); ALBUMIN 1.4 G/DL (3.4-5.0); ALBUMIN/GLOBULIN RATIO 0.4 (1.1-1.5); ALKALINE PHOSPHATASE 120 IU/L (46-116); ASPARTATE AMINO TRANSFERASE 60 U/L (10-37); BILIRUBIN,TOTAL 0.6 MG/DL (0.1-1.0); MAGNESIUM 1.9 MG/DL (1.5-2.4); PHOSPHORUS 3.3 MG/DL (2.3-4.5); PREALBUMIN 13.9 MG/DL (19-36); TOTAL PROTEIN 5.3 G/DL (6.4-8.2)
[2021-12-28] MEDS: ZINC/COPPER/MANGANESE/SELENIUM 0.5 ML, chromic chloride inj. 5 MCG in AA 5%/D15W/ELECTR... IV SCH ×2 (07:53→16:46)
[2021-12-28] MEDS: K and/or MAG REPLACEMENT MC SCH ×2 (08:00→20:00)
[2021-12-28] MEDS: docusate sod 100mg capsule PO SCH ×2 (09:03→22:34)
[2021-12-28] MEDS: mineral oil/petrolatum, white cream 113gm jar TP SCH ×2 (09:03→22:33)
[2021-12-28] MEDS: clopidogrel 75mg tablet PO SCH (09:03)
--- NOTE | 2021-12-28 10:36 | NUR ---
F/u 2: Pt TPN remains at goal and tolerating electrolytes WNL this AM per EMR. Pt advanced to clear liquids diet to start WL 12/27 though no intake documentation at this time in EMR. No BM yet post-op receiving routine colace. Will monitor for further nutrition intervention needs this admit. Recommendations: 1. Continuous TPN per MD using 2:1 Clinimix-E 01/10 at 95 ml/hr goal with additional 250 ml 20% ILE to run at 20.83 ml/hr for 12 hrs on Tuesdays and Fridays. In total to provide 2280 ml total volume/day, avg 10019 kcal, 114 g AA, and 342 g dextrose (3.06 mg/kg/min GIR) 2. Monitor electrolytes and adjust recommendations as appropriate 3. Continue clear liquid diet per MD; advance to low fiber diet as medically indicated 4. PALB and TG q Tuesday/; daily scaled wts 5. routine bowel care per MD Addendum: 12/28/21 at [address] Amended: Links added. Addendum: 12/28/21 at [address] CORRECTION* Recommendations: 1. Continuous TPN per MD using 2:1 Clinimix-E 5/15 at 95 ml/hr goal with additional 250 ml 20% ILE to run at 20.83 ml/hr for 12 hrs on Tuesdays and Fridays. In total to provide 2280 ml total volume/day, avg 1762 kcal, 114 g AA, and 342 g dextrose (3.06 mg/kg/min GIR)
[2021-12-28 11:00] VITALS: BP 135/78
[2021-12-28] MEDS: HYDROcodone/acetaminophen 10/325mg tab PO PRN ×3 (12:13→23:08)
[2021-12-28 15:00] VITALS: BP 128/69
[2021-12-28] MEDS ORDERED: magnesium hydroxide 30ml (MOM) UD suspension PO PRN (16:00)
[2021-12-28] MEDS: rivaroxaban 20mg tablet PO SCH (17:30)
[2021-12-28 18:00] VITALS: BP 131/68
--- NOTE | 2021-12-28 18:02 | NUR ---
Pt a/ox4, room air, pain 7/10 controlled with 10/325 [place] given twice. Pt OOB to chair for 3.5 hours. Pt had clear liquid diet in chair, ambulated to end of palencia and back with FWW. Dressing remains CDI today. JACLYN drain with good output: about 100ml in 12 hours. Dominguez catheter removed without difficulty. Pt has voided multiple times since in urinal. TPN infusing as ordered. came by to visit this afternoon for about an hour. Pt calls appropriately, Active Bowel tones on the left side. Pt is passing gas.
--- NOTE | 2021-12-28 18:51 | NUR ---
Patient in room PCU 3027. I have received report from DEJA Gross and had the opportunity to ask questions and assume patient care.
[2021-12-28] MEDS: insulin glargine (Lantus) pen - multi-dose SQ SCH (21:00)
[2021-12-28 22:00] VITALS: BP 141/77
[2021-12-29] MEDS: piperacillin/tazo 3.375gm/50ml 50 ML IV SCH ×3 (00:44→16:40)
[2021-12-29 02:00] VITALS: BP 142/78
[2021-12-29] MEDS: ZINC/COPPER/MANGANESE/SELENIUM 0.5 ML, chromic chloride inj. 5 MCG in AA 5%/D15W/ELECTR... IV SCH ×2 (03:40→14:19)
[2021-12-29] MEDS: ondansetron/PF 4mg/2ml inj IV PRN ×3 (05:53→22:27)
--- NOTE | 2021-12-29 06:30 | NUR ---
Patient in room PCU 3027. I have received report from DEJA Carey and had the opportunity to ask questions and assume patient care.
--- NOTE | 2021-12-29 06:30 | NUR ---
Problems reprioritized. Patient report given, questions answered & plan of care reviewed with DEJA Arrington. Aware of epsiode of nausea and emesis just prior to shift change. Pt given harish.
[2021-12-29 07:00] VITALS: BP 159/83
[2021-12-29 07:02] LABS: BASOPHILS % (AUTO) 0.3 % (0-1); EOSINOPHILS # (AUTO) 0.1 X10'3 (0-0.9); EOSINOPHILS % (AUTO) 1.5 % (0-6); LYMPHOCYTES # (AUTO) 0.6 X10'3 (1.1-4.8); LYMPHOCYTES % (AUTO) 7.2 % (21-51); MEAN CORPUSCULAR HEMOGLOBIN 29.6 PG (27.0-31.0); MEAN CORPUSCULAR HGB CONC 33.1 g/dL (33.0-36.5); MEAN CORPUSCULAR VOLUME 89.3 FL (78-98); MEAN PLATELET VOLUME 9.4 FL (7.4-10.4); MONOCYTES # (AUTO) 0.5 X10'3 (0-0.9); MONOCYTES % (AUTO) 6.1 % (2-12); NEUTROPHILS # (AUTO) 7.3 X10'3 (1.8-7.7); NEUTROPHILS % (AUTO) 84.9 % (42-75); PLATELET COUNT 268 X10'3 (140-440); RED BLOOD COUNT 3.36 X10'6 (4.70-6.10); RED CELL DISTRIBUTION WIDTH 14.4 % (11.5-14.5); WHITE BLOOD COUNT 8.6 X10'3 (4.5-11.0)
[2021-12-29] MEDS: fat emulsion IV bag 250 ML IV SCH (07:58)
[2021-12-29] MEDS: docusate sod 100mg capsule PO SCH ×2 (07:59→20:00)
[2021-12-29] MEDS: clopidogrel 75mg tablet PO SCH (07:59)
[2021-12-29] MEDS: MVI, adult No.4 with vit. K 10 ML in dextrose 5% water 500ml 500 ML IV SCH ×2 (07:59)
[2021-12-29] MEDS: K and/or MAG REPLACEMENT MC SCH ×2 (08:00→20:00)
[2021-12-29] MEDS: nicotine 21mg patch - 24 hr TD SCH (08:00)
[2021-12-29] MEDS: mineral oil/petrolatum, white cream 113gm jar TP SCH ×2 (08:00→19:55)
[2021-12-29 11:00] VITALS: BP 146/80
[2021-12-29] MEDS: diatr meglu/diatrizoate 30ml oral sol.-(3 dose) bottle PO SCH ×3 (12:41→19:51)
[2021-12-29 15:00] VITALS: BP 132/74
--- NOTE | 2021-12-29 15:21 | NUR ---
PRESSURE ULCER EDUCATION: DEFINITION: A pressure ulcer is an area of skin that breaks down when you stay in one position too long. The constant pressure against the skin reduces the blood flow to that area and the affected tissue dies. CAUSES: "Being bedridden or in a wheelchair "Fragile skin "Having a chronic condition, such as diabetes or vascular disease "Inability to move certain parts of your body without assistance "Older age "Incontinence of urine or stool SYMPTOMS: "A reddened area that DOES NOT turn white when pressed on - this can be the beginning of a pressure ulcer "A blister, deep sore or a crater - these can be advanced pressure ulcers FIRST AID: "Relieve the pressure on this area "Keep the area clean and dry "Call your primary doctor if you see any of the above symptoms "DO NOT massage the area "DO NOT use a donut shaped or ring shaped pillow- these actually interfere with the blood flow and cause complications PREVENTION: "Check for pressure ulcers everyday "Change position at least every two hours to relieve pressure "Use items that help relieve pressure- pillows, sheepskin, foam padding, and powders. "Keep skin clean and dry "Eat healthy well balanced meals "Exercise daily IF YOU SEE ANY OF THESE SYMPTOMS WHILE IN THE HOSPITAL - TELL YOUR NURSE IMMEDIATELY. IF YOU SEE ANY OF THESE SYMPTOMS WHILE AT HOME OR HAVE ANY QUESTIONS OR CONCERNS ABOUT PRESSURE ULCERS - CALL YOUR PRIMARY DOCTOR IMMEDIATELY. Addendum: 12/29/21 at [address] LVN Amended: Links added.
--- NOTE | 2021-12-29 15:41 | NUR ---
Pt unable to tolerate CT prep orally, Phoned Dr Andujar for NG placement as pt has more emesis than intake. 16 fr NG placed initially to suction for [address] remaining CT prep given and will be monitored for tolerance. Pt advised to use call light if he becomes nauseated at any time. NG to remain clamped for CT.
[2021-12-29] MEDS: NUT.TX.IMPAIRED DIGEST FXN (Ensure Clear) 237 ML PO SCH (16:40)
[2021-12-29 18:00] VITALS: BP 151/70
--- NOTE | 2021-12-29 18:25 | NUR ---
Problems reprioritized. Patient report given, questions answered & plan of care reviewed with DEJA Felder.
--- NOTE | 2021-12-29 18:34 | NUR ---
Problems reprioritized. Patient report given, questions answered & plan of care reviewed with DEJA Purvis.
[2021-12-29] MEDS: apixaban 5mg tablet PO SCH (19:51)
[2021-12-29] MEDS: HYDROcodone/acetaminophen 10/325mg tab PO PRN (20:12)
[2021-12-29] MEDS: insulin glargine (Lantus) pen - multi-dose SQ SCH ×2 (20:13→20:23)
[2021-12-29] MEDS: insulin regular, human U-100 3ml vial - multi-dose SQ SCH (20:21)
[2021-12-29 22:00] VITALS: BP 155/82
[2021-12-29] MEDS: pantoprazole 40MG/NS 100ML BAG 100 ML IV SCH (23:41)
[2021-12-29] MEDS: morphine 2 MG/ML inj. syringe IV PRN (23:42)
[2021-12-30] MEDS: ZINC/COPPER/MANGANESE/SELENIUM 0.5 ML, chromic chloride inj. 5 MCG in AA 5%/D15W/ELECTR... IV SCH ×2 (00:42→11:03)
[2021-12-30] MEDS: piperacillin/tazo 3.375gm/50ml 50 ML IV SCH ×4 (00:43→23:14)
[2021-12-30 02:00] VITALS: BP 142/75
[2021-12-30] MEDS: morphine 2 MG/ML inj. syringe IV PRN (05:58)
[2021-12-30 06:35] LABS: BASOPHILS % (AUTO) 0.4 % (0-1); EOSINOPHILS # (AUTO) 0.1 X10'3 (0-0.9); EOSINOPHILS % (AUTO) 0.6 % (0-6); HEMATOCRIT 28.1 % (42.0-52.0); HEMOGLOBIN 9.5 g/dl (14.0-17.9); LYMPHOCYTES # (AUTO) 0.8 X10'3 (1.1-4.8); LYMPHOCYTES % (AUTO) 8.5 % (21-51); MEAN CORPUSCULAR HEMOGLOBIN 30.2 PG (27.0-31.0); MEAN CORPUSCULAR HGB CONC 33.8 g/dL (33.0-36.5); MEAN CORPUSCULAR VOLUME 89.3 FL (78-98); MEAN PLATELET VOLUME 9.2 FL (7.4-10.4); MONOCYTES # (AUTO) 0.6 X10'3 (0-0.9); MONOCYTES % (AUTO) 6.7 % (2-12); NEUTROPHILS # (AUTO) 7.5 X10'3 (1.8-7.7); NEUTROPHILS % (AUTO) 83.8 % (42-75); PLATELET COUNT 319 X10'3 (140-440); RED BLOOD COUNT 3.15 X10'6 (4.70-6.10); RED CELL DISTRIBUTION WIDTH 14.4 % (11.5-14.5)
[2021-12-30 07:25] VITALS: BP 117/89
[2021-12-30] MEDS: K and/or MAG REPLACEMENT MC SCH ×2 (08:00→20:00)
[2021-12-30] MEDS: NUT.TX.IMPAIRED DIGEST FXN (Ensure Clear) 237 ML PO SCH ×3 (08:00→18:00)
[2021-12-30] MEDS: apixaban 5mg tablet PO SCH ×2 (08:02→20:48)
[2021-12-30] MEDS: clopidogrel 75mg tablet PO SCH (08:03)
[2021-12-30] MEDS: nicotine 21mg patch - 24 hr TD SCH (08:03)
[2021-12-30] MEDS: mineral oil/petrolatum, white cream 113gm jar TP SCH ×2 (08:03→20:48)
[2021-12-30] MEDS: docusate sod 100mg capsule PO SCH ×2 (08:03→20:48)
--- NOTE | 2021-12-30 10:59 | NUR ---
f/u: Per clinical pharmacist, current TPN formula stock is low, see recs below for new formula once current one runs out. Unable to meet protein and energy needs w/o exceeding maximum lipid load. Recommendations: 1. Continuous TPN per MD using 2:1 Clinimix-E 5/15 at 95 ml/hr goal with additional 250 ml 20% ILE to run at 20.83 ml/hr for 12 hrs on Tuesdays and Fridays. In total to provide 2280 ml total volume/day, avg 1762 kcal, 114 g AA, and 342 g dextrose (3.06 mg/kg/min GIR) 2. Once current formula out: Continuous TPN using Kabiven E 3:1 at 80ml/hr goal providing 1920ml volume, 1642kcals, 63g AA, 188g dextrose (1.73mg/kg/min GIR) 75g lipids (1g/kg lipid load) (meets ~88% energy, 71% protein) 2. Monitor electrolytes and adjust recommendations as appropriate 3. Continue clear liquid diet per MD; advance to low fiber diet as medically indicated 4. PALB and TG q Tuesday/; daily scaled wts 5. routine bowel care per MD
[2021-12-30 11:00] VITALS: BP 111/90
--- NOTE | 2021-12-30 11:03 | NUR ---
f/u: Per clinical pharmacist, current TPN formula stock is low, see recs below for new formula once current one runs out. Unable to meet protein and energy needs w/o exceeding maximum lipid load. Recommendations 1. Continuous TPN per MD using 2:1 Clinimix-E /15 at 95 ml/hr goal with additional 250 ml 20% ILE to run at 20.83 ml/hr for 12 hrs on Tuesdays and Fridays. In total to provide 2280 ml total volume/day, avg 1762 kcal, 114 g AA, and 342 g dextrose (3.06 mg/kg/min GIR) 2. Once current formula out: Continuous TPN using Kabiven E 3:1 at 80ml/hr goal providing 1920ml volume, 1642kcals, 63g AA, 188g dextrose (1.73mg/kg/min GIR) 75g lipids (1g/kg lipid load) (meets ~88% energy, 71% protein) 3. Monitor electrolytes and adjust recommendations as appropriate 4. Continue clear liquid diet per MD; advance to low fiber diet as medically indicated 5. PALB and TG q Tuesday/; daily scaled wts 6. routine bowel care per MD Addendum: 12/30/21 at [address] Amended: Links added.
[2021-12-30 15:00] VITALS: BP 139/76
[2021-12-30 18:00] VITALS: BP 121/67
[2021-12-30] MEDS: ZINC/COPPER/MANGANESE/SELENIUM 1 ML, chromic chloride inj. 10 MCG, MVI, adult No.4 with... IV SCH ×4 (20:48)
[2021-12-30] MEDS: insulin glargine (Lantus) pen - multi-dose SQ SCH (20:49)
[2021-12-30] MEDS: HYDROcodone/acetaminophen 10/325mg tab PO PRN (20:57)
[2021-12-30] MEDS: diatr meglu/diatrizoate 30ml oral sol.-(3 dose) bottle PO SCH (21:00)
[2021-12-30 22:00] VITALS: BP 109/70
[2021-12-30] MEDS: pantoprazole 40MG/NS 100ML BAG 100 ML IV SCH (23:11)
--- NOTE | 2021-12-31 00:08 | NUR ---
RN paged Dr Ulrich to clarify order for gastrografin. Order was placed for it to be given orally however both doctor noted say it is to be given rectally. Per pharmacy they do not have a policy or procedure for rectal gastrografin. Per the gastrografin will be given tomorrow in CT and not to be given on floor. Will endorse to day shift nurse in report.
[2021-12-31 02:00] VITALS: BP 131/67
--- NOTE | 2021-12-31 05:47 | NUR ---
Patient rested very comfortably through out shift. Pain resolved with PO PRN pain meds, patient tolerating PO meds and clear liquids well. NG tube to LIS, output charted. PICC line working well, both lines flushed well. Patient aware of CT today, will receive rectal contrast from CT prior to imaging.
[2021-12-31 06:00] VITALS: BP 127/65
[2021-12-31] MEDS: diatr meglu/diatrizoate 30ml oral sol.-(3 dose) bottle PO SCH ×2 (07:00→19:52)
[2021-12-31 07:18] LABS: BASOPHILS % (AUTO) 0.4 % (0-1); EOSINOPHILS # (AUTO) 0.2 X10'3 (0-0.9); HEMATOCRIT 27.6 % (42.0-52.0); HEMOGLOBIN 9.2 g/dl (14.0-17.9); LYMPHOCYTES # (AUTO) 0.5 X10'3 (1.1-4.8); LYMPHOCYTES % (AUTO) 6.8 % (21-51); MEAN CORPUSCULAR HGB CONC 33.5 g/dL (33.0-36.5); MEAN CORPUSCULAR VOLUME 89.5 FL (78-98); MEAN PLATELET VOLUME 8.9 FL (7.4-10.4); MONOCYTES # (AUTO) 0.6 X10'3 (0-0.9); MONOCYTES % (AUTO) 7.8 % (2-12); NEUTROPHILS # (AUTO) 6.3 X10'3 (1.8-7.7); PLATELET COUNT 357 X10'3 (140-440); RED BLOOD COUNT 3.08 X10'6 (4.70-6.10); RED CELL DISTRIBUTION WIDTH 14.8 % (11.5-14.5); WHITE BLOOD COUNT 7.7 X10'3 (4.5-11.0)
[2021-12-31] MEDS: nicotine 21mg patch - 24 hr TD SCH (07:26)
[2021-12-31] MEDS: piperacillin/tazo 3.375gm/50ml 50 ML IV SCH ×3 (07:26→23:12)
[2021-12-31 07:37] LABS: ALANINE AMINOTRANSFERASE 56 U/L (12-78); ALBUMIN 1.5 G/DL (3.4-5.0); ALBUMIN/GLOBULIN RATIO 0.3 (1.1-1.5); ALKALINE PHOSPHATASE 121 IU/L (46-116); ANION GAP 6 (8-16); ASPARTATE AMINO TRANSFERASE 37 U/L (10-37); BILIRUBIN,TOTAL 0.4 MG/DL (0.1-1.0); BLOOD UREA NITROGEN 30 MG/DL (7-18); BUN/CREATININE RATIO 26.8 (5.4-32.0); CALCIUM 7.3 MG/DL (8.5-10.1); CHLORIDE 105 MMOL/L (99-107); CREATININE 1.12 MG/DL (0.60-1.10); GLUCOSE 113 MG/DL (70-104); MAGNESIUM 1.9 MG/DL (1.5-2.4); PHOSPHORUS 3.6 MG/DL (2.3-4.5); POTASSIUM 4.1 MMOL/L (3.5-5.1); PREALBUMIN 19.8 MG/DL (19-36); SODIUM 135 MMOL/L (135-145); TOTAL CARBON DIOXIDE 24.2 MMOL/L (24-32); eGFR 64 ML/MIN
[2021-12-31] MEDS: NUT.TX.IMPAIRED DIGEST FXN (Ensure Clear) 237 ML PO SCH ×3 (08:00→17:58)
[2021-12-31] MEDS: K and/or MAG REPLACEMENT MC SCH ×2 (08:00→18:43)
[2021-12-31] MEDS: mineral oil/petrolatum, white cream 113gm jar TP SCH ×2 (08:00→19:57)
[2021-12-31] MEDS: apixaban 5mg tablet PO SCH ×2 (08:57→19:53)
[2021-12-31] MEDS: docusate sod 100mg capsule PO SCH ×2 (08:57→19:53)
[2021-12-31] MEDS: clopidogrel 75mg tablet PO SCH (08:57)
[2021-12-31] MEDS ORDERED: diatr meglu/diatrizoate 30ml oral sol.-(3 dose) bottle ONE (10:09)
--- NOTE | 2021-12-31 10:28 | NUR ---
Reassessment: Pt continues on clear liquid diet. Noted MD ordered an Ensure Clear TID however pt has been refusing versus NPO. Recommend discontinuing ONS. Per I&O pt with 1150 mL output from NGT that's on LIS which was placed following an episode of emesis 12/29. Likely that anything pt taking in PO is being suctioned out with NGT. Pt now receiving Kabiven-E for TPN formula and tolerating at goal rate. CT of abdomen and pelvis 12/29 shows SBO extending to mid ileum per report, pt pending f/u CT today per MD note. LBM 12/26. Recommend continuing with TPN given possible bowel obstruction and discontinuing PO diet d/t NGT to LIS, unless pt is receiving PO diet for oral gratification. Will continue to follow closely. Recommendations 1. Continuous TPN using Kabiven E 3:1 at 80 ml/hr goal providing 1920 ml volume, 1642 kcal, 63 g AA, 188 g dextrose (1.74 mg/kg/min GIR) and 75 g lipids (1g/kg lipid load). Meets ~88% estimated energy needs and ~71% estimated protein needs 2. IF Clinimix-E 5/15 back in stock, continuous TPN using 2:1 Clinimix-E 5/15 at 95 ml/hr goal with additional 250 ml 20% ILE to run at 20.83 ml/hr for 12 hrs on Tuesdays and Fridays. In total to provide 2280 ml volume/day, avg 1762 kcal, 114 g AA, and 342 g dextrose (3.18 mg/kg/min GIR) 3. Monitor electrolytes and adjust recommendations as appropriate 4. Consider discontinuing clear liquid diet as pt with an NGT to LIS; advance to low fiber diet as medically indicated 5. Discontinue Ensure Clear TIDWM as pt with an NGT to LIS and refusing ONS 6. PALB and TG q Tuesday/ 7. Daily scaled wts 8. Bowel care per MD Addendum: 12/31/21 at [address] Amended: Links added.
[2021-12-31 11:00] VITALS: BP 152/67
[2021-12-31 15:00] VITALS: BP 143/81
[2021-12-31] MEDS: ZINC/COPPER/MANGANESE/SELENIUM 1 ML, chromic chloride inj. 10 MCG, MVI, adult No.4 with... IV SCH ×4 (16:07)
[2021-12-31 18:00] VITALS: BP 136/67
[2021-12-31] MEDS: insulin glargine (Lantus) pen - multi-dose SQ SCH (20:24)
[2021-12-31 22:00] VITALS: BP 133/78
[2021-12-31] MEDS: pantoprazole 40MG/NS 100ML BAG 100 ML IV SCH (23:13)
[2021-12-31] MEDS: HYDROcodone/acetaminophen 10/325mg tab PO PRN (23:16)
--- NOTE | 2022-01-01 00:23 | NUR ---
RN noted at beginning of shift the LIS suction for NG tube was set at 15mmhg. Minimal output noted since night shift manager marked on canister. RN increased to 70mmhg and out put was 600 in fist few hours of shift. NG canister emptied and another 600ml output was noted. LIS turn off for an hour after mediator, then restarted. Patient denies issues, no nausea or increase in pain. Will continue to monitor output.
[2022-01-01 02:00] VITALS: BP 136/73
[2022-01-01] MEDS: ZINC/COPPER/MANGANESE/SELENIUM 1 ML, chromic chloride inj. 10 MCG, MVI, adult No.4 with... IV SCH ×4 (04:23)
--- NOTE | 2022-01-01 05:17 | NUR ---
Patient alert and oriented x4, Tolerating clear liquid diet and room air well. Voiding in urinal, had one BM on shiftman. TPN running as ordered through PICC line, both lines flushing with out issues. RN changed dressing to midline insicion d/t drainage. RN noted upon starting shift that patient NG tube was set at 15mmhg for LIS, RN increased to 70mmhg and had large amount gastric output through out shift, all documented. Patient denies any nausea. [place] for pain, works well. Patient denies any issues or concerns during shift, anxious to have NG tube removed.
[2022-01-01 06:00] VITALS: BP 130/69
[2022-01-01] MEDS: NUT.TX.IMPAIRED DIGEST FXN (Ensure Clear) 237 ML PO SCH ×3 (08:00→18:00)
[2022-01-01] MEDS: docusate sod 100mg capsule PO SCH ×2 (08:00→19:04)
[2022-01-01] MEDS: K and/or MAG REPLACEMENT MC SCH ×2 (08:00→19:12)
[2022-01-01] MEDS: mineral oil/petrolatum, white cream 113gm jar TP SCH ×2 (08:00→19:05)
[2022-01-01] MEDS: piperacillin/tazo 3.375gm/50ml 50 ML IV SCH ×3 (09:07→23:28)
[2022-01-01] MEDS: nicotine 21mg patch - 24 hr TD SCH (09:07)
[2022-01-01] MEDS: clopidogrel 75mg tablet PO SCH (09:07)
[2022-01-01] MEDS: apixaban 5mg tablet PO SCH ×2 (09:07→19:04)
[2022-01-01 11:00] VITALS: BP 134/75
[2022-01-01 15:00] VITALS: BP 136/75
[2022-01-01 18:00] VITALS: BP 140/72
[2022-01-01] MEDS: HYDROcodone/acetaminophen 10/325mg tab PO PRN (19:05)
[2022-01-01] MEDS: insulin glargine (Lantus) pen - multi-dose SQ SCH (21:00)
[2022-01-01 22:00] VITALS: BP 143/81
[2022-01-01] MEDS: pantoprazole 40MG/NS 100ML BAG 100 ML IV SCH (23:28)
[2022-01-02] MEDS: ZINC/COPPER/MANGANESE/SELENIUM 1 ML, chromic chloride inj. 10 MCG, MVI, adult No.4 with... IV SCH ×8 (01:13→21:43)
--- NOTE | 2022-01-02 01:26 | NUR ---
Patient reported one emisis. Per patient her throat is still sore from NG tube that was removed, he took a large sip of water and it came back up. Patient denies nausea. RN instructed importance of small sips until throat feeling better and making sure patient sitting upright with any intake to prevent aspiration. Bedding changed, patient denies any other issues.
[2022-01-02 06:30] VITALS: BP 134/75
--- NOTE | 2022-01-02 06:30 | NUR ---
Patient in room PCU 3027. I have received report from DEJA Hernandez and had the opportunity to ask questions and assume patient care.
[2022-01-02] MEDS: NUT.TX.IMPAIRED DIGEST FXN (Ensure Clear) 237 ML PO SCH ×2 (07:43→08:00)
[2022-01-02] MEDS: K and/or MAG REPLACEMENT MC SCH ×2 (07:43→19:20)
[2022-01-02] MEDS: nicotine 21mg patch - 24 hr TD SCH (08:00)
[2022-01-02] MEDS: piperacillin/tazo 3.375gm/50ml 50 ML IV SCH ×3 (08:18→23:23)
[2022-01-02] MEDS: apixaban 5mg tablet PO SCH ×2 (08:18→19:21)
[2022-01-02] MEDS: clopidogrel 75mg tablet PO SCH (08:18)
[2022-01-02] MEDS: docusate sod 100mg capsule PO SCH ×2 (08:18→19:21)
[2022-01-02] MEDS: mineral oil/petrolatum, white cream 113gm jar TP SCH ×2 (08:19→19:21)
[2022-01-02 11:00] VITALS: BP 138/78
--- NOTE | 2022-01-02 11:35 | NUR ---
Reassessment: Pt s/p KUB 01/01 with impression: "dilated loops of small bowel are seen suggestive of ileus or partial obstruction". Pt documented with 3 BMs 12/31 followed by 2 BMs 01/01. NGT was discontinued 01/01 per EMR. Pt continues on clear liquid diet with average 63% PO intake since 12/31, though not meeting estimated nutrient needs d/t the nature of the diet. Pt continues with TPN at goal rate. Combined nutrition from TPN and clear liquid diet is meeting 100% of patient's estimated nutrient needs. Recommend liberalizing to low fiber diet as medically indicated. Will continue to follow closely. Recommendations 1. Continuous TPN using Kabiven E 3:1 at 80 ml/hr goal providing 1920 ml volume, 1642 kcal, 63 g AA, 188 g dextrose (1.76 mg/kg/min GIR) and 75 g lipids (1g/kg lipid load). Meets ~88% estimated energy needs and ~71% estimated protein needs 2. IF Clinimix-E 5/15 back in stock, continuous TPN using 2:1 Clinimix-E /15 at 95 ml/hr goal with additional 250 ml 20% ILE to run at 20.83 ml/hr for 12 hrs on Tuesdays and Fridays. In total to provide 2280 ml volume/day, avg 1762 kcal, 114 g AA, and 342 g dextrose (3.21 mg/kg/min GIR) 3. Monitor electrolytes and adjust recommendations as appropriate 4. Advance to low fiber diet as medically indicated 5. PALB and TG q Tuesday/ 6. Daily scaled wts 7. Bowel care per MD Addendum: 01/02/22 at [address] Amended: Links added.
[2022-01-02 15:00] VITALS: BP 135/79
[2022-01-02] MEDS: HYDROmorphone inj. 0.5 MG/0.5 ML DISP.SYRIN IV PRN ×2 (17:59→23:30)
[2022-01-02] MEDS: ondansetron/PF 4mg/2ml inj IV PRN (17:59)
[2022-01-02 18:00] VITALS: BP 142/79
--- NOTE | 2022-01-02 18:50 | NUR ---
Problems reprioritized. Patient report given, questions answered & plan of care reviewed with DEJA Hernandez.
[2022-01-02] MEDS: insulin glargine (Lantus) pen - multi-dose SQ SCH (21:00)
[2022-01-02 22:00] VITALS: BP 141/83
[2022-01-02] MEDS: pantoprazole 40MG/NS 100ML BAG 100 ML IV SCH (23:23)
[2022-01-02 23:47] VITALS: BP 142/79
[2022-01-03 02:00] VITALS: BP 131/74
[2022-01-03 05:13] LABS: BASOPHILS % (AUTO) 0.5 % (0-1); EOSINOPHILS # (AUTO) 0.2 X10'3 (0-0.9); EOSINOPHILS % (AUTO) 2.8 % (0-6); HEMATOCRIT 26.7 % (42.0-52.0); HEMOGLOBIN 9.4 g/dl (14.0-17.9); LYMPHOCYTES # (AUTO) 0.6 X10'3 (1.1-4.8); LYMPHOCYTES % (AUTO) 10.3 % (21-51); MEAN CORPUSCULAR HEMOGLOBIN 32.6 PG (27.0-31.0); MEAN CORPUSCULAR HGB CONC 35.3 g/dL (33.0-36.5); MEAN CORPUSCULAR VOLUME 92.3 FL (78-98); MEAN PLATELET VOLUME 8.3 FL (7.4-10.4); MONOCYTES # (AUTO) 0.5 X10'3 (0-0.9); MONOCYTES % (AUTO) 9.8 % (2-12); NEUTROPHILS # (AUTO) 4.3 X10'3 (1.8-7.7); NEUTROPHILS % (AUTO) 76.6 % (42-75); PLATELET COUNT 473 X10'3 (140-440); RED CELL DISTRIBUTION WIDTH 15.6 % (11.5-14.5); WHITE BLOOD COUNT 5.6 X10'3 (4.5-11.0)
[2022-01-03 06:30] VITALS: BP 123/68
--- NOTE | 2022-01-03 06:30 | NUR ---
Patient in room PCU 3027. I have received report from DEJA Hernandez and had the opportunity to ask questions and assume patient care.
[2022-01-03] MEDS: apixaban 5mg tablet PO SCH ×2 (08:24→20:42)
[2022-01-03] MEDS: piperacillin/tazo 3.375gm/50ml 50 ML IV SCH (08:24)
[2022-01-03] MEDS: clopidogrel 75mg tablet PO SCH (08:24)
[2022-01-03] MEDS: docusate sod 100mg capsule PO SCH ×2 (08:25→20:44)
[2022-01-03] MEDS: mineral oil/petrolatum, white cream 113gm jar TP SCH ×2 (08:25→20:44)
[2022-01-03] MEDS: ondansetron/PF 4mg/2ml inj IV PRN (08:25)
[2022-01-03] MEDS: HYDROmorphone inj. 0.5 MG/0.5 ML DISP.SYRIN IV PRN (08:25)
[2022-01-03 10:53] LABS: ALBUMIN 1.7 G/DL (3.4-5.0); ANION GAP 11 (8-16); BLOOD UREA NITROGEN 26 MG/DL (7-18); BUN/CREATININE RATIO 24.1 (5.4-32.0); CALCIUM 7.8 MG/DL (8.5-10.1); CHLORIDE 101 MMOL/L (99-107); CREATININE 1.08 MG/DL (0.60-1.10); GLUCOSE 101 MG/DL (70-104); POTASSIUM 4.2 MMOL/L (3.5-5.1); SODIUM 133 MMOL/L (135-145); TOTAL CARBON DIOXIDE 21.1 MMOL/L (24-32); TRIGLYCERIDES 59 MG/DL (20-135); eGFR 67 ML/MIN
[2022-01-03 11:00] VITALS: BP 123/75
[2022-01-03] MEDS: K and/or MAG REPLACEMENT MC SCH ×2 (11:07→19:22)
[2022-01-03] MEDS: HYDROcodone/acetaminophen 10/325mg tab PO PRN ×2 (13:49→18:06)
[2022-01-03 15:00] VITALS: BP 138/79
[2022-01-03 18:00] VITALS: BP 122/68
--- NOTE | 2022-01-03 18:50 | NUR ---
Problems reprioritized. Patient report given, questions answered & plan of care reviewed with DEJA Rodas.
[2022-01-03 22:00] VITALS: BP 118/72
[2022-01-04 06:00] VITALS: BP 118/66
--- NOTE | 2022-01-04 06:59 | NUR ---
Patient in room PCU 3027. I have received report from DEJA Rodas and had the opportunity to ask questions and assume patient care.
[2022-01-04 07:11] LABS: ALANINE AMINOTRANSFERASE 38 U/L (12-78); ALBUMIN 1.7 G/DL (3.4-5.0); ALBUMIN/GLOBULIN RATIO 0.4 (1.1-1.5); ALKALINE PHOSPHATASE 121 IU/L (46-116); ANION GAP 5 (8-16); ASPARTATE AMINO TRANSFERASE 23 U/L (10-37); BILIRUBIN,TOTAL 0.6 MG/DL (0.1-1.0); BLOOD UREA NITROGEN 29 MG/DL (7-18); BUN/CREATININE RATIO 26.4 (5.4-32.0); CALCIUM 7.6 MG/DL (8.5-10.1); CHLORIDE 104 MMOL/L (99-107); GLUCOSE 82 MG/DL (70-104); MAGNESIUM 1.9 MG/DL (1.5-2.4); POTASSIUM 4.5 MMOL/L (3.5-5.1); SODIUM 134 MMOL/L (135-145); TOTAL CARBON DIOXIDE 24.7 MMOL/L (24-32); TOTAL PROTEIN 6.3 G/DL (6.4-8.2); eGFR 66 ML/MIN
[2022-01-04] MEDS ORDERED: pantoprazole 40mg Tablet.DR PO SCH (07:30)
[2022-01-04] MEDS: K and/or MAG REPLACEMENT MC SCH (08:00)
[2022-01-04] MEDS: apixaban 5mg tablet PO SCH (08:21)
[2022-01-04] MEDS: docusate sod 100mg capsule PO SCH (08:22)
[2022-01-04] MEDS: clopidogrel 75mg tablet PO SCH (08:22)
[2022-01-04] MEDS: mineral oil/petrolatum, white cream 113gm jar TP SCH (08:22)
[2022-01-04] MEDS ORDERED: APIX5TAB3 PO (10:08)
[2022-01-04 11:00] VITALS: BP 121/72
--- NOTE | 2022-01-04 11:30 | NUR ---
PICC line removed right forearm, pressure applied, dressing in place, 41 mm, tip intact. No issues noted,patient to discharge to home. Malaika SHORT
--- NOTE | 2022-01-04 13:22 | NUR ---
Patient is stable for discharge per Dr. Escamilla orders. All discharge instructions reviewed with patient and all questions answered. New prescriptions sent electronically. Patient medications retrieved from pharmacy. PICC line discontinued. hot stamp operator discontinued. Belongings collected and sent with patient. Mode of transportation via private vehicle. Wheeled to lobby.
== END 2022-01-04 13:10 | disposition home health service (06) | DRG 329 ==
LOC: ER 12:14 → ED HOLD 16:17 → UNDOADMIN 16:45 → ED HOLD 16:45 → ORTHO 4S 17:28 → ICU 2S 12-21 23:49 → PCU 3S 12-23 17:16
PROVIDERS: ADMIT Family Medicine; ATTEND Family Medicine
PROC: 0D9670Z Drainage of Stomach with Drainage Device, Via Natural or Artificial Opening (ICD-10-PCS; 2021-12-20)
PROC: 0DT80ZZ Resection of Small Intestine, Open Approach (ICD-10-PCS; 2021-12-21)
PROC: 0DN80ZZ Release Small Intestine, Open Approach (ICD-10-PCS; 2021-12-21)
PROC: 3E0T3BZ Introduction of Anesthetic Agent into Peripheral Nerves and Plexi, Percutaneous Approach (ICD-10-PCS; 2021-12-21)
PROC: 3E0T33Z Introduction of Anti-inflammatory into Peripheral Nerves and Plexi, Percutaneous Approach (ICD-10-PCS; 2021-12-21)
PROC: 0DTJ0ZZ Resection of Appendix, Open Approach (ICD-10-PCS; principal; 2021-12-21 21:35)
PROC: 02HV33Z Insertion of Infusion Device into Superior Vena Cava, Percutaneous Approach (ICD-10-PCS; 2021-12-25)
PROC: B548ZZA Ultrasonography of Superior Vena Cava, Guidance (ICD-10-PCS; 2021-12-25)
DX: K56.601 Complete intestinal obstruction, unspecified as to cause (principal); K65.1 Peritoneal abscess; E43 Unspecified severe protein-calorie malnutrition; T81.41XA Infection following a procedure, superficial incisional surgical site, initial encounter; N17.9 Acute kidney failure, unspecified; I13.0 Hypertensive heart and chronic kidney disease with heart failure and stage 1 through stage 4 chronic kidney disease, or unspecified chronic kidney disease; E87.0 Hyperosmolality and hypernatremia; Z20.822 Contact with and (suspected) exposure to COVID-19; D72.819 Decreased white blood cell count, unspecified; D75.839 Thrombocytosis, unspecified; E78.00 Pure hypercholesterolemia, unspecified; I50.9 Heart failure, unspecified; K21.9 Gastro-esophageal reflux disease without esophagitis; K66.0 Peritoneal adhesions (postprocedural) (postinfection); N18.9 Chronic kidney disease, unspecified; Z77.090 Contact with and (suspected) exposure to asbestos; E78.5 Hyperlipidemia, unspecified; E86.1 Hypovolemia; E87.6 Hypokalemia; D64.9 Anemia, unspecified; E88.09 Other disorders of plasma-protein metabolism, not elsewhere classified; I87.2 Venous insufficiency (chronic) (peripheral); R23.0 Cyanosis; F17.210 Nicotine dependence, cigarettes, uncomplicated; Y83.8 Other surgical procedures as the cause of abnormal reaction of the patient, or of later complication, without mention of misadventure at the time of the procedure; J44.9 Chronic obstructive pulmonary disease, unspecified; I73.9 Peripheral vascular disease, unspecified; E86.0 Dehydration; Z79.01 Long term (current) use of anticoagulants; Z79.02 Long term (current) use of antithrombotics/antiplatelets; Z79.899 Other long term (current) drug therapy; Z85.46 Personal history of malignant neoplasm of prostate; Z86.711 Personal history of pulmonary embolism; Z86.718 Personal history of other venous thrombosis and embolism; Z92.3 Personal history of irradiation; Z95.820 Peripheral vascular angioplasty status with implants and grafts; Z68.24 Body mass index [BMI] 24.0-24.9, adult; Y92.89 Other specified places as the place of occurrence of the external cause
CPT/HCPCS: 36415; 36569; 36600; 71045; 74018; 74176; 76942; 80048; 80053; 80061; 81001; 82803; 82948; 83036; 83605; 83690; 83735; 84100; 84134; 84145; 84478; 84484; 85007; 85018; 85025; 85610; 85730; 86885; 86900; 86901; 87040; 87635; 93005; 94667; 94668; 94760; 96361; 96374; 97110; 97116; 97161; 97530; 99285; A4618; A7000; C1751; C9113; C9290; G0378; J0780; J1170; J1644; J1815; J2270; J2370; J2405; J2543; J2704; J3010; J3475; J3480; J3490; J7030; J7060; J7070; J7120; P9045; Q9963; S0020

== ENCOUNTER 2022-10-21 14:01 | Inpatient (IN) | payer OTHER, MEDICARE ==
[~2022-10-21] VITALS: Ht 175.3 cm; Wt 68.2 kg
[~2022-10-21 14:01] MED LIST changes: +APIX5TAB3 PO; +ATOR-2 PO; +CHOL200013 PO; -CHOL400T32 PO; +CLOP75TA33 PO; +EMOL396C TOP; +EZET10TA6 PO; +FERR-39 PO; +FLUO15CR TOP; +FURO-149 PO; +GABA300C PO; +HYDR-3972 PO; -HYDR-4383 PO; -HYDR25TA4 PO; +KEN0.1O TP; +LACT-47; +LACT10SO3 PO; +LIDOCAINE 4% TOP; +MAGN420T PO; -MYCOL15CR TOP; +PETR100O3 TOP; +POTA-207 PO; +PSYL575P22 PO; -RIVA20TA PO; +[UNRECOGNIZED DRUG - CODE] TOP; +[UNRECOGNIZED DRUG - OTHER] IR
[2022-10-21 15:38] LABS: BASOPHILS % (AUTO) 0.1 % (0-1); EOSINOPHILS % (AUTO) 0 % (0-6); HEMATOCRIT 36.4 % (42.0-52.0); LYMPHOCYTES # (AUTO) 0.4 X10'3 (1.1-4.8); LYMPHOCYTES % (AUTO) 4.2 % (21-51); MEAN CORPUSCULAR HEMOGLOBIN 30.5 PG (27.0-31.0); MEAN CORPUSCULAR VOLUME 92.4 FL (78-98); MEAN PLATELET VOLUME 7.7 FL (7.4-10.4); MONOCYTES % (AUTO) 9.9 % (2-12); NEUTROPHILS % (AUTO) 85.8 % (42-75); PLATELET COUNT 203 X10'3 (140-440); RED BLOOD COUNT 3.94 X10'6 (4.70-6.10); RED CELL DISTRIBUTION WIDTH 16.3 % (11.5-14.5); WHITE BLOOD COUNT 10.5 X10'3 (4.5-11.0)
[2022-10-21 15:57] LABS: ALANINE AMINOTRANSFERASE 39 U/L (12-78); ALBUMIN 3.1 G/DL (3.4-5.0); ALBUMIN/GLOBULIN RATIO 0.7 (1.1-1.5); ALKALINE PHOSPHATASE 105 IU/L (46-116); ANION GAP 10 (8-16); ASPARTATE AMINO TRANSFERASE 28 U/L (10-37); BILIRUBIN,TOTAL 1.4 MG/DL (0.1-1.0); BLOOD UREA NITROGEN 20 MG/DL (7-18); BUN/CREATININE RATIO 16.8 (5.4-32.0); CALCIUM 8.9 MG/DL (8.5-10.1); CHLORIDE 100 MMOL/L (99-107); CREATININE 1.19 MG/DL (0.60-1.10); GLUCOSE 91 MG/DL (70-104); POTASSIUM 3.2 MMOL/L (3.5-5.1); SODIUM 133 MMOL/L (135-145); TOTAL PROTEIN 7.3 G/DL (6.4-8.2); eGFR 60 ML/MIN
[2022-10-21] MEDS ORDERED: iohexol 350MG/ML 100ml bottle IV ONE ×2 (16:03→17:12)
--- NOTE | 2022-10-21 17:18 | NUR ---
OFF TO CT
[2022-10-21] MEDS ORDERED: vancomycin/NS 1 GM ADD-VANTAGE 250 ML IV ONE (17:25)
[2022-10-21] MEDS ORDERED: piperacillin/tazo 3.375gm/50ml 50 ML IV ONE (17:25)
--- NOTE | 2022-10-21 18:44 | NUR ---
BYPASS SURGERY DR JORDAN ON 10/09 AT [facility]. DR JORDAN REFERRED P HERE FOR POST OP COMPLICATION
--- NOTE | 2022-10-21 18:55 | NUR ---
PIV TO RIGHT FA INFILTRATED AFTER CT. WARM COMPRESS APPLIED. NEW PIV 20G TO LEFT FA X 3 ATTEMPTS.
[2022-10-21] MEDS ORDERED: AMLO2.5T2 PO (20:53)
[2022-10-21] MEDS ORDERED: CYAN500T71 PO (20:53)
[2022-10-21] MEDS ORDERED: magnesium Cl slow-release 64mg tablet PO PRN (21:45)
[2022-10-21] MEDS ORDERED: magnesium hydroxide 30ml (MOM) UD suspension PO PRN (21:45)
[2022-10-21] MEDS ORDERED: potassium Cl 20 mEq SR tablet PO PRN (21:45)
[2022-10-21] MEDS ORDERED: acetaminophen 325mg tablet PO PRN (21:45)
[2022-10-21] MEDS ORDERED: morphine 2 MG/ML inj. syringe IV PRN (21:45)
[2022-10-21] MEDS ORDERED: enoxaparin 40mg/0.4ml syringe SUBCUT ONE (21:45)
[2022-10-21] MEDS ORDERED: mag hydrox/Alum hydrox/simeth 30ml oral suspension PO PRN (21:45)
[2022-10-21] MEDS ORDERED: magnesium 4gm in 100ml NS 100 ML IV PRN (21:45)
[2022-10-21] MEDS ORDERED: potassium Cl 40MEQ/1/2NS 520ml 520 ML IV PRN (21:45)
[2022-10-21] MEDS ORDERED: lactulose 20gm/30ml cup PO PRN (21:50)
[2022-10-21] MEDS ORDERED: enoxaparin 80mg/0.8ml syringe SUBCUT ONE (21:55)
--- NOTE | 2022-10-21 22:00 | NUR ---
DRESSING CHANGED TO RIGHT GROIN, CLEANSED WITH NS AND PAT DRY, APPLIED 4X4/ABD PAD AND COVERED WITH TEGRADERM. SURGICAL WOUND DRAINING YELLOW-GREENISH DRAINAGE
[2022-10-21] MEDS ORDERED: potassium Cl 40MEQ/1/2NS 520ml 520 ML IV ONE (22:05)
[2022-10-21] MEDS: normal saline 1000ml 1,000 ML IV SCH (22:11)
[2022-10-21] MEDS: morphine 2 MG/ML inj. syringe IV PRN (22:13)
[2022-10-22] VITALS (21 sets, daily range): BP systolic 94–153; BP diastolic 54–97
--- NOTE | 2022-10-22 00:45 | NUR ---
Patient arrived from the ER on her gurney. Patient is in bed in a semi-fowlers position. Patient is alert and oriented times four. Patient is attached to tele box number 13. Patient has no signs or symptoms of distress. Call light within reach and all personal belongings within reach.
--- NOTE | 2022-10-22 01:22 | NUR ---
Patient remain NPO as ordered
[2022-10-22] MEDS ORDERED: piperacillin/tazo 3.375gm/50ml 50 ML IV SCH (03:00)
--- NOTE | 2022-10-22 05:36 | NUR ---
Patient in bed with the head of the bed in a flat position resting. Patient has no signs or symptoms of distress. Call light within reach and all personal belongings within reach
[2022-10-22] MEDS: atorvastatin 20mg tablet PO SCH (07:42)
[2022-10-22] MEDS: amLODIPine 2.5mg tablet PO SCH (07:43)
[2022-10-22] MEDS: morphine 2 MG/ML inj. syringe IV PRN ×3 (07:44→19:32)
[2022-10-22 07:53] LABS: BASOPHILS % (AUTO) 0.4 % (0-1); EOSINOPHILS % (AUTO) 0.4 % (0-6); HEMATOCRIT 29.6 % (42.0-52.0); HEMOGLOBIN 10.2 g/dl (14.0-17.9); LYMPHOCYTES # (AUTO) 0.5 X10'3 (1.1-4.8); LYMPHOCYTES % (AUTO) 7.8 % (21-51); MEAN CORPUSCULAR HEMOGLOBIN 31.3 PG (27.0-31.0); MEAN CORPUSCULAR HGB CONC 34.3 g/dL (33.0-36.5); MEAN CORPUSCULAR VOLUME 91.3 FL (78-98); MEAN PLATELET VOLUME 7.7 FL (7.4-10.4); MONOCYTES # (AUTO) 0.9 X10'3 (0-0.9); MONOCYTES % (AUTO) 12.6 % (2-12); NEUTROPHILS # (AUTO) 5.4 X10'3 (1.8-7.7); NEUTROPHILS % (AUTO) 78.8 % (42-75); PLATELET COUNT 153 X10'3 (140-440); RED BLOOD COUNT 3.24 X10'6 (4.70-6.10); RED CELL DISTRIBUTION WIDTH 16.4 % (11.5-14.5); WHITE BLOOD COUNT 6.9 X10'3 (4.5-11.0)
[2022-10-22] MEDS ORDERED: pantoprazole 40mg Tablet.DR PO SCH (08:00)
[2022-10-22] MEDS: K and/or MAG REPLACEMENT MC SCH ×2 (08:00→19:31)
[2022-10-22] MEDS: docusate sod 100mg capsule PO SCH ×2 (08:00→19:20)
[2022-10-22 08:12] LABS: ALANINE AMINOTRANSFERASE 35 U/L (12-78); ALBUMIN 2.3 G/DL (3.4-5.0); ALBUMIN/GLOBULIN RATIO 0.7 (1.1-1.5); ALKALINE PHOSPHATASE 84 IU/L (46-116); ANION GAP 7 (8-16); ASPARTATE AMINO TRANSFERASE 41 U/L (10-37); BILIRUBIN,TOTAL 0.8 MG/DL (0.1-1.0); BLOOD UREA NITROGEN 22 MG/DL (7-18); BUN/CREATININE RATIO 19.6 (5.4-32.0); CALCIUM 7.9 MG/DL (8.5-10.1); CHLORIDE 105 MMOL/L (99-107); CREATININE 1.12 MG/DL (0.60-1.10); GLUCOSE 95 MG/DL (70-104); MAGNESIUM 1.8 MG/DL (1.5-2.4); POTASSIUM 3.2 MMOL/L (3.5-5.1); SODIUM 135 MMOL/L (135-145); TOTAL CARBON DIOXIDE 23.1 MMOL/L (24-32); TOTAL PROTEIN 5.6 G/DL (6.4-8.2); eGFR 64 ML/MIN
[2022-10-22] MEDS: potassium Cl 20 mEq SR tablet PO PRN ×2 (09:13→13:53)
[2022-10-22] MEDS ORDERED: bacitracin 15gm ointment TP ONE (09:57)
[2022-10-22] MEDS ORDERED: heparin 10,000 units/1 ML INJ ONE (10:07)
[2022-10-22] MEDS ORDERED: meperidine/PF 25mg/ml syringe IV PRN ×2 (10:10)
[2022-10-22] MEDS ORDERED: morphine 4 MG/ML inj SYRINge IV PRN (10:10)
[2022-10-22] MEDS ORDERED: proCHLORperazine 10 MG/2 ml inj IV PRN (10:10)
[2022-10-22] MEDS ORDERED: morphine 2 MG/ML inj. syringe IV PRN (10:10)
[2022-10-22] MEDS ORDERED: ondansetron/PF 4mg/2ml inj IV PRN (10:10)
[2022-10-22] MEDS ORDERED: ringers solution, lacted 1,000 ML IV SCH (10:10)
[2022-10-22] MEDS ORDERED: fentaNYL/PF 50MCG/1 ML 2ML syringe ONE (10:24)
[2022-10-22] MEDS ORDERED: midazolam 1 mg/ML 2ml injection ONE (10:25)
[2022-10-22] MEDS ORDERED: propofol inj 20 ML IV ONE (10:25)
[2022-10-22] MEDS ORDERED: sevoflurane 250ml liquid IH ONE (10:26)
[2022-10-22] MEDS ORDERED: vancomycin 1,000mg inj ONE (11:12)
--- NOTE | 2022-10-22 11:29 | NUR ---
Received from OR via BED, accompanied by Anesthesiologist DR MCDONALD and report given by Anesthesiologist AND 0R RN. PT VERY DROWSY W/LMA IN PLACE. RIGHT GROIN W/SMALL BLACK FOAM DRSG W/WOUND VAC SETTINGS 125MMHG LCS, NO DRIANAGE NOTED. SKIN AT INFERIOR/PROXIMAL PORTION IS REDDENED, REST OF AREA IS PINK. PT AWAKENED SHORTLY AFTER ARRIVING FROM OR, LMA D/CD. PT DENIES PAIN. Addendum: 10/22/22 at 1230 by Marii Fox RN Amended: Links added.
[2022-10-22] MEDS: meperidine/PF 25mg/ml syringe IV PRN ×2 (12:47→13:11)
--- NOTE | 2022-10-22 12:55 | NUR ---
received report from recovery room nurse. VSKishan. I&D of right groin and wound vac in place. hand in place. no blood loss. Vanco being given.
--- NOTE | 2022-10-22 13:29 | NUR ---
Report called to receiving nurse. CALLED DR PALMA, UPDATED AND RECEIVED ORDERS. BALTAZAR CATHETER D/CD, PT TOLERATED WELL. PT STATES PAIN IS 5-6 AND STATES PAIN IS TOLERABLE AND DECLINES MEDICAITON OR INTERVENTION AT THIS TIME. Transferred via BED W/METAL RING ON RIGHT 4TH FINGER AND A PAIR OF SOCKS ONLY Belongings. RECEIVING RN AT BEDSIDE TO RECEIVE PT, BLL, CALL LIGHT GIVEN, SIDE RAILS UP X 2. PTS CALLED AND MESSAGE LEFT ON VOICEMAIL. Special Issues communicated to receiving nurse. YES. Addendum: 10/22/22 at 1358 by Marii Fox RN Amended: Links added.
--- NOTE | 2022-10-22 13:47 | NUR ---
Notified Dr. Sloan that pt is back from surgery.
[2022-10-22] MEDS: normal saline 1000ml 1,000 ML IV SCH (13:53)
[2022-10-22] MEDS ORDERED: FLUO15CR TOP (16:59)
[2022-10-22] MEDS ORDERED: vancomycin/NS 1 GM ADD-VANTAGE 250 ML IV SCH (17:00)
[2022-10-22] MEDS ORDERED: PANT40TA54 PO (17:01)
[2022-10-22] MEDS ORDERED: LIDO5CRE18 TOP (17:01)
[2022-10-22] MEDS ORDERED: SILD100T PO (17:02)
[2022-10-22] MEDS ORDERED: NAPR220T67 PO (17:04)
[2022-10-22] MEDS ORDERED: TRIA15CR62 TOP (17:04)
[2022-10-22] MEDS: apixaban 5mg tablet PO SCH (19:20)
[2022-10-23 04:43] VITALS: BP 145/78
--- NOTE | 2022-10-23 05:14 | NUR ---
Patient in bed with the head of the bed in a flat position. Patient has no signs or symptoms of distress. Call light within reach and al Addendum: 10/23/22 at 0515 by Ashish Kelsey RN call light within reach and all peronal belongings within reach
[2022-10-23 06:00] VITALS: BP 149/78
[2022-10-23] MEDS: normal saline 1000ml 1,000 ML IV SCH ×2 (06:55→23:45)
[2022-10-23] MEDS: morphine 2 MG/ML inj. syringe IV PRN ×2 (07:29→11:26)
[2022-10-23] MEDS: atorvastatin 20mg tablet PO SCH (07:30)
[2022-10-23] MEDS: clopidogrel 75mg tablet PO SCH (07:30)
[2022-10-23] MEDS: apixaban 5mg tablet PO SCH ×2 (07:30→20:27)
[2022-10-23] MEDS: docusate sod 100mg capsule PO SCH ×2 (07:31→20:26)
[2022-10-23] MEDS: amLODIPine 2.5mg tablet PO SCH (07:31)
[2022-10-23] MEDS: ondansetron/PF 4mg/2ml inj IV PRN (07:38)
[2022-10-23] MEDS: K and/or MAG REPLACEMENT MC SCH ×2 (08:00→20:00)
[2022-10-23 08:09] LABS: BASOPHILS % (AUTO) 0.5 % (0-1); EOSINOPHILS # (AUTO) 0.1 X10'3 (0-0.9); EOSINOPHILS % (AUTO) 1.2 % (0-6); HEMATOCRIT 32.3 % (42.0-52.0); HEMOGLOBIN 10.8 g/dl (14.0-17.9); LYMPHOCYTES # (AUTO) 0.5 X10'3 (1.1-4.8); LYMPHOCYTES % (AUTO) 8.1 % (21-51); MEAN CORPUSCULAR HEMOGLOBIN 30.8 PG (27.0-31.0); MEAN CORPUSCULAR HGB CONC 33.6 g/dL (33.0-36.5); MEAN CORPUSCULAR VOLUME 91.8 FL (78-98); MEAN PLATELET VOLUME 8.2 FL (7.4-10.4); MONOCYTES # (AUTO) 0.7 X10'3 (0-0.9); MONOCYTES % (AUTO) 10.7 % (2-12); NEUTROPHILS # (AUTO) 5.2 X10'3 (1.8-7.7); NEUTROPHILS % (AUTO) 79.5 % (42-75); PLATELET COUNT 180 X10'3 (140-440); RED BLOOD COUNT 3.51 X10'6 (4.70-6.10); RED CELL DISTRIBUTION WIDTH 16.3 % (11.5-14.5); WHITE BLOOD COUNT 6.5 X10'3 (4.5-11.0)
[2022-10-23 08:36] LABS: ALANINE AMINOTRANSFERASE 36 U/L (12-78); ALBUMIN 2.2 G/DL (3.4-5.0); ALBUMIN/GLOBULIN RATIO 0.6 (1.1-1.5); ALKALINE PHOSPHATASE 97 IU/L (46-116); ANION GAP 7 (8-16); ASPARTATE AMINO TRANSFERASE 40 U/L (10-37); BILIRUBIN,TOTAL 0.7 MG/DL (0.1-1.0); BLOOD UREA NITROGEN 15 MG/DL (7-18); BUN/CREATININE RATIO 15.2 (5.4-32.0); CALCIUM 8.3 MG/DL (8.5-10.1); CHLORIDE 103 MMOL/L (99-107); CREATININE 0.99 MG/DL (0.60-1.10); GLUCOSE 112 MG/DL (70-104); MAGNESIUM 1.8 MG/DL (1.5-2.4); POTASSIUM 3.9 MMOL/L (3.5-5.1); SODIUM 134 MMOL/L (135-145); TOTAL CARBON DIOXIDE 24.5 MMOL/L (24-32); TOTAL PROTEIN 5.8 G/DL (6.4-8.2); eGFR 74 ML/MIN
[2022-10-23 11:00] VITALS: BP 142/82
[2022-10-23 15:00] VITALS: BP 143/87
[2022-10-23 18:00] VITALS: BP 159/87
--- NOTE | 2022-10-23 18:30 | NUR ---
Patient in room PCU 3018. I have received report from Baylee SHORT and had the opportunity to ask questions and assume patient care.
[2022-10-23 22:00] VITALS: BP 155/42
--- NOTE | 2022-10-24 03:32 | NUR ---
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
[2022-10-24 06:00] VITALS: BP 177/90
--- NOTE | 2022-10-24 06:05 | NUR ---
Problems reprioritized. Patient report given, questions answered & plan of care reviewed with Kiara GUTIERREZ.
[2022-10-24 06:32] LABS: BASOPHILS % (AUTO) 0.2 % (0-1); EOSINOPHILS # (AUTO) 0.1 X10'3 (0-0.9); EOSINOPHILS % (AUTO) 0.8 % (0-6); HEMATOCRIT 33.8 % (42.0-52.0); HEMOGLOBIN 11.3 g/dl (14.0-17.9); LYMPHOCYTES # (AUTO) 0.6 X10'3 (1.1-4.8); LYMPHOCYTES % (AUTO) 8.3 % (21-51); MEAN CORPUSCULAR HEMOGLOBIN 30.7 PG (27.0-31.0); MEAN CORPUSCULAR HGB CONC 33.6 g/dL (33.0-36.5); MEAN CORPUSCULAR VOLUME 91.6 FL (78-98); MEAN PLATELET VOLUME 8.1 FL (7.4-10.4); MONOCYTES # (AUTO) 0.7 X10'3 (0-0.9); MONOCYTES % (AUTO) 10.5 % (2-12); NEUTROPHILS # (AUTO) 5.6 X10'3 (1.8-7.7); NEUTROPHILS % (AUTO) 80.2 % (42-75); PLATELET COUNT 235 X10'3 (140-440); RED BLOOD COUNT 3.69 X10'6 (4.70-6.10); RED CELL DISTRIBUTION WIDTH 16.3 % (11.5-14.5); WHITE BLOOD COUNT 6.9 X10'3 (4.5-11.0)
[2022-10-24 06:45] LABS: ALANINE AMINOTRANSFERASE 42 U/L (12-78); ALBUMIN 2.3 G/DL (3.4-5.0); ALBUMIN/GLOBULIN RATIO 0.6 (1.1-1.5); ALKALINE PHOSPHATASE 107 IU/L (46-116); ANION GAP 6 (8-16); ASPARTATE AMINO TRANSFERASE 45 U/L (10-37); BILIRUBIN,TOTAL 0.8 MG/DL (0.1-1.0); BLOOD UREA NITROGEN 11 MG/DL (7-18); BUN/CREATININE RATIO 12.2 (5.4-32.0); CALCIUM 8.1 MG/DL (8.5-10.1); CHLORIDE 102 MMOL/L (99-107); GLUCOSE 105 MG/DL (70-104); POTASSIUM 3.6 MMOL/L (3.5-5.1); SODIUM 133 MMOL/L (135-145); TOTAL CARBON DIOXIDE 24.6 MMOL/L (24-32); TOTAL PROTEIN 6.1 G/DL (6.4-8.2); eGFR 83 ML/MIN
[2022-10-24] MEDS: K and/or MAG REPLACEMENT MC SCH ×2 (07:47→20:00)
[2022-10-24] MEDS: docusate sod 100mg capsule PO SCH ×2 (07:58→19:42)
[2022-10-24] MEDS: apixaban 5mg tablet PO SCH ×2 (07:59→19:41)
[2022-10-24] MEDS: amLODIPine 2.5mg tablet PO SCH (07:59)
[2022-10-24] MEDS: clopidogrel 75mg tablet PO SCH (07:59)
[2022-10-24] MEDS: atorvastatin 20mg tablet PO SCH (08:00)
[2022-10-24] MEDS: linezolid 600mg tablet PO SCH ×2 (14:40→19:41)
[2022-10-24] MEDS ORDERED: VANCOMYCIN LEVEL IV ONE (16:30)
[2022-10-24] MEDS: normal saline 1000ml 1,000 ML IV SCH (16:45)
--- NOTE | 2022-10-24 17:28 | NUR ---
I agree with Kiara GUTIERREZ assessment
[2022-10-24 18:00] VITALS: BP 152/77
--- NOTE | 2022-10-24 18:10 | NUR ---
Patient in room PCU 3018. I have received report from Kiara Mathews and had the opportunity to ask questions and assume patient care.
[2022-10-24] MEDS: triamcinolone acetonide 0.1% ointment 15gm TP SCH (19:41)
[2022-10-24] MEDS: morphine 2 MG/ML inj. syringe IV PRN (23:23)
[2022-10-25 02:00] VITALS: BP 150/83
[2022-10-25 06:00] VITALS: BP 153/85
[2022-10-25 06:05] LABS: BASOPHILS % (AUTO) 0.3 % (0-1); EOSINOPHILS # (AUTO) 0.1 X10'3 (0-0.9); EOSINOPHILS % (AUTO) 1.6 % (0-6); HEMATOCRIT 34.4 % (42.0-52.0); HEMOGLOBIN 11.7 g/dl (14.0-17.9); LYMPHOCYTES # (AUTO) 0.7 X10'3 (1.1-4.8); LYMPHOCYTES % (AUTO) 8.1 % (21-51); MEAN CORPUSCULAR HEMOGLOBIN 31.1 PG (27.0-31.0); MEAN CORPUSCULAR HGB CONC 34.1 g/dL (33.0-36.5); MEAN CORPUSCULAR VOLUME 91.2 FL (78-98); MEAN PLATELET VOLUME 7.8 FL (7.4-10.4); MONOCYTES # (AUTO) 0.8 X10'3 (0-0.9); MONOCYTES % (AUTO) 10.3 % (2-12); NEUTROPHILS # (AUTO) 6.4 X10'3 (1.8-7.7); NEUTROPHILS % (AUTO) 79.7 % (42-75); PLATELET COUNT 301 X10'3 (140-440); RED BLOOD COUNT 3.77 X10'6 (4.70-6.10); RED CELL DISTRIBUTION WIDTH 15.8 % (11.5-14.5)
[2022-10-25 06:19] LABS: ALANINE AMINOTRANSFERASE 39 U/L (12-78); ALBUMIN 2.3 G/DL (3.4-5.0); ALBUMIN/GLOBULIN RATIO 0.5 (1.1-1.5); ALKALINE PHOSPHATASE 115 IU/L (46-116); ANION GAP 7 (8-16); ASPARTATE AMINO TRANSFERASE 40 U/L (10-37); BILIRUBIN,TOTAL 0.8 MG/DL (0.1-1.0); BLOOD UREA NITROGEN 12 MG/DL (7-18); BUN/CREATININE RATIO 13.8 (5.4-32.0); CALCIUM 8.3 MG/DL (8.5-10.1); CHLORIDE 100 MMOL/L (99-107); CREATININE 0.87 MG/DL (0.60-1.10); GLUCOSE 103 MG/DL (70-104); MAGNESIUM 2.1 MG/DL (1.5-2.4); POTASSIUM 3.3 MMOL/L (3.5-5.1); SODIUM 130 MMOL/L (135-145); TOTAL CARBON DIOXIDE 22.7 MMOL/L (24-32); TOTAL PROTEIN 6.5 G/DL (6.4-8.2); eGFR 86 ML/MIN
--- NOTE | 2022-10-25 06:20 | NUR ---
Patient in room PCU 3018. I have received report from Omaira GUTIERREZ and had the opportunity to ask questions and assume patient care.
--- NOTE | 2022-10-25 06:28 | NUR ---
Problems reprioritized. Patient report given, questions answered & plan of care reviewed with Nola GUTIERREZ.
[2022-10-25] MEDS: K and/or MAG REPLACEMENT MC SCH ×2 (07:39→19:53)
[2022-10-25] MEDS ORDERED: magnesium 4gm in 100ml NS 100 ML IV PRN (07:45)
[2022-10-25] MEDS ORDERED: potassium Cl 20 mEq SR tablet PO PRN (07:45)
[2022-10-25] MEDS ORDERED: potassium Cl 40MEQ/1/2NS 520ml 520 ML IV PRN (07:45)
[2022-10-25] MEDS ORDERED: magnesium Cl slow-release 64mg tablet PO PRN (07:45)
[2022-10-25] MEDS: atorvastatin 20mg tablet PO SCH (08:50)
[2022-10-25] MEDS: docusate sod 100mg capsule PO SCH ×2 (08:50→19:30)
[2022-10-25] MEDS: apixaban 5mg tablet PO SCH ×2 (08:50→19:30)
[2022-10-25] MEDS: amLODIPine 2.5mg tablet PO SCH (08:51)
[2022-10-25] MEDS: clopidogrel 75mg tablet PO SCH (08:51)
[2022-10-25] MEDS: potassium Cl 20 mEq SR tablet PO PRN ×3 (08:51→16:49)
[2022-10-25] MEDS: linezolid 600mg tablet PO SCH ×2 (08:51→19:30)
[2022-10-25] MEDS: normal saline 1000ml 1,000 ML IV SCH (09:05)
[2022-10-25] MEDS: morphine 2 MG/ML inj. syringe IV PRN (10:22)
[2022-10-25] MEDS: triamcinolone acetonide 0.1% ointment 15gm TP SCH ×2 (11:30→19:54)
[2022-10-25 13:00] VITALS: BP 136/77
--- NOTE | 2022-10-25 14:00 | NUR ---
PRESSURE ULCER EDUCATION: DEFINITION: A pressure ulcer is an area of skin that breaks down when you stay in one position too long. The constant pressure against the skin reduces the blood flow to that area and the affected tissue dies. CAUSES: "Being bedridden or in a wheelchair "Fragile skin "Having a chronic condition, such as diabetes or vascular disease "Inability to move certain parts of your body without assistance "Older age "Incontinence of urine or stool SYMPTOMS: "A reddened area that DOES NOT turn white when pressed on - this can be the beginning of a pressure ulcer "A blister, deep sore or a crater - these can be advanced pressure ulcers FIRST AID: "Relieve the pressure on this area "Keep the area clean and dry "Call your primary doctor if you see any of the above symptoms "DO NOT massage the area "DO NOT use a donut shaped or ring shaped pillow- these actually interfere with the blood flow and cause complications PREVENTION: "Check for pressure ulcers everyday "Change position at least every two hours to relieve pressure "Use items that help relieve pressure- pillows, sheepskin, foam padding, and powders. "Keep skin clean and dry "Eat healthy well balanced meals "Exercise daily IF YOU SEE ANY OF THESE SYMPTOMS WHILE IN THE HOSPITAL - TELL YOUR NURSE IMMEDIATELY. IF YOU SEE ANY OF THESE SYMPTOMS WHILE AT HOME OR HAVE ANY QUESTIONS OR CONCERNS ABOUT PRESSURE ULCERS - CALL YOUR PRIMARY DOCTOR IMMEDIATELY. Addendum: 10/25/[address] LVN Amended: Links added.
--- NOTE | 2022-10-25 14:51 | NUR ---
Zyvox consult: Pt admit DX severe PVD, R groin abscess, CKD 3, and chronic pain s/p OR 10/22 for R groin I&D w/ wound vac placement now started on zyvox per EMR. Pt PO ~75% initial two regular diet meals though regressed past two days 0% mostly w/ notable nausea per EMR. Pt seen by RD at bedside for written/verbal low tyramine and verbal high protein diet eds w/ RD contact information provided. Pt confirms low intake given upset stomach at this time w/ on/off nausea/discomfort following PO. Pt reports is agreeable to creamy soup/crackers WS tonight and prefers milk, cereal, muffin, and cottage cheese w/ fruit WB. Also, dislikes pepper seasoning, tomatoes, and our eggs at breakfast dietary notified. Pt reports has Ensures at home he drinks is agreeable to [employer] Ensure Plus High Protein TIDWM; MD notified. BM 10/23 receiving routine colace w/ PRN MoM and zofran last provided 10/[address] encouraged pt to make further food preferences known and request RD if nutrition questions/concerns. Will continue to follow. Rec: 1. continue regular diet; honor food preferences-see subjective; encourage PO 2. Fel[employer] Ensure Plus High Protein TIDWM; pending physician verification in EMR 3. Consider routine MVI supplementation for wound healing needs 4. routine bowel care; consider routine anti-nausea coverage if persists per physician discretion 5. scaled wt this admit; subsequent weekly wts Addendum: 10/25/22 at [address] Amended: Links added.
[2022-10-25 17:00] VITALS: BP 155/90
--- NOTE | 2022-10-25 17:13 | NUR ---
I agree with Yanira GUTIERREZ assessment.
[2022-10-25 18:00] VITALS: BP 135/75
[2022-10-25] MEDS: LACTOSE-REDUCED FOOD 237ML LIQUID PO SCH (18:00)
--- NOTE | 2022-10-25 18:44 | NUR ---
Problems reprioritized. Patient report given, questions answered & plan of care reviewed with Tiffany RN.
--- NOTE | 2022-10-25 20:29 | NUR ---
Pt. is awake alert oriented appears withdrawn answers questions appropriately. Peripheral IV intact NS infusing. Pt. has a Right fem wound vac with small amt serous drainage. Pt. able to use urinal chance clear urine. Did not want Lactulose tonight.
[2022-10-25] MEDS: ondansetron/PF 4mg/2ml inj IV PRN (22:24)
[2022-10-25 22:57] VITALS: BP 157/87
[2022-10-26] MEDS: normal saline 1000ml 1,000 ML IV SCH ×2 (01:45→18:25)
[2022-10-26 02:00] VITALS: BP 165/81
[2022-10-26 06:03] LABS: BASOPHILS % (AUTO) 0.4 % (0-1); EOSINOPHILS # (AUTO) 0.1 X10'3 (0-0.9); EOSINOPHILS % (AUTO) 1.4 % (0-6); HEMATOCRIT 35.5 % (42.0-52.0); HEMOGLOBIN 11.9 g/dl (14.0-17.9); LYMPHOCYTES # (AUTO) 0.8 X10'3 (1.1-4.8); LYMPHOCYTES % (AUTO) 9.6 % (21-51); MEAN CORPUSCULAR HEMOGLOBIN 30.9 PG (27.0-31.0); MEAN CORPUSCULAR HGB CONC 33.6 g/dL (33.0-36.5); MEAN CORPUSCULAR VOLUME 92.1 FL (78-98); MEAN PLATELET VOLUME 7.3 FL (7.4-10.4); MONOCYTES # (AUTO) 0.9 X10'3 (0-0.9); MONOCYTES % (AUTO) 10.6 % (2-12); NEUTROPHILS # (AUTO) 6.9 X10'3 (1.8-7.7); PLATELET COUNT 370 X10'3 (140-440); RED BLOOD COUNT 3.86 X10'6 (4.70-6.10); WHITE BLOOD COUNT 8.8 X10'3 (4.5-11.0)
[2022-10-26 06:17] LABS: ALANINE AMINOTRANSFERASE 40 U/L (12-78); ALBUMIN 2.3 G/DL (3.4-5.0); ALBUMIN/GLOBULIN RATIO 0.5 (1.1-1.5); ALKALINE PHOSPHATASE 117 IU/L (46-116); ANION GAP 7 (8-16); ASPARTATE AMINO TRANSFERASE 37 U/L (10-37); BILIRUBIN,TOTAL 0.7 MG/DL (0.1-1.0); BLOOD UREA NITROGEN 14 MG/DL (7-18); BUN/CREATININE RATIO 14.4 (5.4-32.0); CALCIUM 8.4 MG/DL (8.5-10.1); CHLORIDE 101 MMOL/L (99-107); CREATININE 0.97 MG/DL (0.60-1.10); GLUCOSE 102 MG/DL (70-104); POTASSIUM 4.1 MMOL/L (3.5-5.1); SODIUM 131 MMOL/L (135-145); TOTAL CARBON DIOXIDE 22.8 MMOL/L (24-32); TOTAL PROTEIN 6.7 G/DL (6.4-8.2); eGFR 76 ML/MIN
--- NOTE | 2022-10-26 06:32 | NUR ---
Patient in room U 3018. I have received report from Tiffany RN and had the opportunity to ask questions and assume patient care. Patient resting in bed in no acute distress.
[2022-10-26 07:00] VITALS: BP 171/85
[2022-10-26] MEDS: K and/or MAG REPLACEMENT MC SCH ×2 (08:00→20:00)
[2022-10-26] MEDS: LACTOSE-REDUCED FOOD 237ML LIQUID PO SCH ×3 (08:00→18:00)
[2022-10-26] MEDS: apixaban 5mg tablet PO SCH ×2 (08:08→19:45)
[2022-10-26] MEDS: clopidogrel 75mg tablet PO SCH (08:08)
[2022-10-26] MEDS: atorvastatin 20mg tablet PO SCH (08:08)
[2022-10-26] MEDS: linezolid 600mg tablet PO SCH ×2 (08:08→19:45)
[2022-10-26] MEDS: docusate sod 100mg capsule PO SCH ×2 (08:09→19:45)
[2022-10-26] MEDS: amLODIPine 2.5mg tablet PO SCH (08:09)
[2022-10-26] MEDS: morphine 2 MG/ML inj. syringe IV PRN ×2 (08:12→19:55)
[2022-10-26] MEDS: triamcinolone acetonide 0.1% ointment 15gm TP SCH ×2 (08:20→20:00)
[2022-10-26 10:52] VITALS: BP 150/80
[2022-10-26] MEDS ORDERED: LINE600T14 PO (11:08)
[2022-10-26] MEDS ORDERED: METR-159 PO (11:10)
[2022-10-26 15:00] VITALS: BP 141/78
--- NOTE | 2022-10-26 15:37 | NUR ---
Page to case management: [id number] Jose L. Pt has not been working with PT and has stairs at his house he is worried about getting up. He also has not been up and walking according to him. [phone]
--- NOTE | 2022-10-26 15:42 | NUR ---
Page to PT: [id number] Jose L. PT needs PT eval for safe DC. Shelby @[phone]
[2022-10-26 18:00] VITALS: BP 113/83
--- NOTE | 2022-10-26 18:31 | NUR ---
Problems reprioritized. Patient report given, questions answered & plan of care reviewed with Rosalba RN. Patient restingin bed in no acute distress.
[2022-10-26] MEDS: ondansetron/PF 4mg/2ml inj IV PRN (19:54)
[2022-10-26 23:00] VITALS: BP 136/86
--- NOTE | 2022-10-27 00:19 | NUR ---
Pt. is awake alert oriented in good spirits ate 50% of dinner tonight. Right groin wound vac dressing intact mod amt of serosang drainage in canister. Pt. able to void per urinal chance clear urine. Peripheral Iv infusing well. Wound vac for home use at bedside. Plan for home discharge in am.
[2022-10-27 01:54] VITALS: BP 129/78
[2022-10-27 06:00] VITALS: BP 122/73
[2022-10-27] MEDS: K and/or MAG REPLACEMENT MC SCH (08:00)
[2022-10-27] MEDS: atorvastatin 20mg tablet PO SCH (08:33)
[2022-10-27] MEDS: clopidogrel 75mg tablet PO SCH (08:33)
[2022-10-27] MEDS: linezolid 600mg tablet PO SCH (08:34)
[2022-10-27] MEDS: amLODIPine 2.5mg tablet PO SCH (08:38)
[2022-10-27] MEDS: apixaban 5mg tablet PO SCH (08:39)
[2022-10-27] MEDS: docusate sod 100mg capsule PO SCH (08:39)
[2022-10-27] MEDS: LACTOSE-REDUCED FOOD 237ML LIQUID PO SCH ×2 (08:39→13:00)
[2022-10-27] MEDS: triamcinolone acetonide 0.1% ointment 15gm TP SCH (08:40)
[2022-10-27 08:41] VITALS: BP 124/71
--- NOTE | 2022-10-27 10:04 | NUR ---
ensure 1400 reassesment not done
--- NOTE | 2022-10-27 11:01 | NUR ---
WOUND INFECTION EDUCATION PROVIDED BY WOUND CARE 1. Patient instructed to call their primary doctor, or go the ED immediately if any of the following symptoms occur: * Increased pain in wound * Increase in drainage from the wound * Redness in the skin surrounding the wound * Warmth in the skin surrounding the wound * Bleeding from the wound * Temperature of 101 or greater 2. If any of these occur while in the hospital tell a nurse immediately. Addendum: 10/27/[address] LVN Amended: Links added.
[2022-10-27] MEDS: normal saline 1000ml 1,000 ML IV SCH (11:05)
[2022-10-27 11:30] VITALS: BP 128/68
--- NOTE | 2022-10-27 14:02 | NUR ---
discharged in stable condition to home with family . iv removed tip intact no complications. belongings sent with pt. pt educated on outpatient wound clinic appointment
== END 2022-10-27 13:52 | disposition home health service (06) | DRG 264 ==
LOC: ER 14:02 → ED HOLD 21:47 → PCU 3S 10-22 00:23
PROVIDERS: ADMIT Internal Medicine; ATTEND Internal Medicine
PROC: B4201ZZ Computerized Tomography (CT Scan) of Abdominal Aorta using Low Osmolar Contrast (ICD-10-PCS; principal; 2022-10-21)
PROC: B4241ZZ Computerized Tomography (CT Scan) of Superior Mesenteric Artery using Low Osmolar Contrast (ICD-10-PCS; 2022-10-21)
PROC: B4281ZZ Computerized Tomography (CT Scan) of Bilateral Renal Arteries using Low Osmolar Contrast (ICD-10-PCS; 2022-10-21)
PROC: B42C1ZZ Computerized Tomography (CT Scan) of Pelvic Arteries using Low Osmolar Contrast (ICD-10-PCS; 2022-10-21)
PROC: B42H1ZZ Computerized Tomography (CT Scan) of Bilateral Lower Extremity Arteries using Low Osmolar Contrast (ICD-10-PCS; 2022-10-21)
PROC: B4211ZZ Computerized Tomography (CT Scan) of Celiac Artery using Low Osmolar Contrast (ICD-10-PCS; 2022-10-21)
PROC: 0JBL0ZZ Excision of Right Upper Leg Subcutaneous Tissue and Fascia, Open Approach (ICD-10-PCS; 2022-10-22)
DX: T82.7XXA Infection and inflammatory reaction due to other cardiac and vascular devices, implants and grafts, initial encounter (principal); I13.0 Hypertensive heart and chronic kidney disease with heart failure and stage 1 through stage 4 chronic kidney disease, or unspecified chronic kidney disease; L02.214 Cutaneous abscess of groin; L03.314 Cellulitis of groin; E78.00 Pure hypercholesterolemia, unspecified; F17.200 Nicotine dependence, unspecified, uncomplicated; I73.9 Peripheral vascular disease, unspecified; B95.62 Methicillin resistant Staphylococcus aureus infection as the cause of diseases classified elsewhere; B95.4 Other streptococcus as the cause of diseases classified elsewhere; N18.30 Chronic kidney disease, stage 3 unspecified; I50.9 Heart failure, unspecified; J44.9 Chronic obstructive pulmonary disease, unspecified; G89.4 Chronic pain syndrome; K21.9 Gastro-esophageal reflux disease without esophagitis; Z85.038 Personal history of other malignant neoplasm of large intestine; Z85.46 Personal history of malignant neoplasm of prostate; Z86.718 Personal history of other venous thrombosis and embolism; Z79.899 Other long term (current) drug therapy
CPT/HCPCS: 36415; 73706; 80053; 83735; 85025; 86885; 86900; 86901; 87070; 87075; 87077; 87081; 87102; 87186; 97110; 97116; 97161; 97530; 99285; A4618; A4649; A6253; A6258; A6402; A6449; A6550; A7000; G0378; J1644; J1650; J2175; J2250; J2270; J2405; J2543; J2704; J3010; J3370; J3480; J3490; J7030; J7120; Q9967